=== PATIENT | male | born 1940 | race Caucasian/White ===

== ENCOUNTER → 2016-11-21 | Outpatient (CLI) | payer BC, OTHER ==
[~2016-11-21] MED LIST: ACET-1138 PO; ALPHTAB9 PO; ASPEC81 PO; CALC-20 PO; CHOL2000 PO; CLB200 PO; COEN1CAP17 PO; CYAN10004 PO; GLIP-172 PO; GLUC250C PO; LORA10TA51 PO; LTR510 PO; LYSI500C4 PO; MOME100A INH; MULTTAB PO; SIMV20TA2 PO; TAMS0.4C59 PO; TIOTCAP INH; ULT50X PO
[2016-11-21 13:46] LABS: ESTIMATED AVERAGE GLUCOSE 148 mg/dl; HA1C FLAG Normal (Normal)
[2016-11-21 14:52] LABS: ALT/SGPT 21 U/L (12-78); CHOLESTEROL 136 mg/dl (0-200); CHOLESTEROL/HDL RATIO 3.8; HDL CHOLESTEROL 36 mg/dl; TRIGLYCERIDES 123 mg/dl (0-150); VERY LOW DENSITY LIPOPROT CALC 25 mg/dl
--- NOTE | 2016-11-26 07:36 | CODING QUERY MEDICAL NECESSITY ---
SUPPORTING DIAGNOSIS NEEDED A supporting diagnosis is required for the test/procedure performed on this patient in order for us to be reimbursed by the patient's insurance. Please provide a supporting diagnosis for the following test/procedure listed below next to the test name along with your signature. *If there is no additional diagnosis for this patient that would support the following test/procedure please document that below next to the test/procedure. Test(s)/Procedure(s) that require a supporting diagnosis: * GLYCATED HEMOGLOBIN DIAGNOSIS: * DOS: 11/21/16 Provider Signature: Date: Thank you Jessica Hughes Health Information Management Once completed, please kindly fax back to [phone] For questions please call [phone]
== END | disposition home or self-care (01) ==
LOC: C.LABMFLN 09:00
PROVIDERS: ATTEND Family Medicine
DX: I12.9 Hypertensive chronic kidney disease with stage 1 through stage 4 chronic kidney disease, or unspecified chronic kidney disease (principal); E78.00 Pure hypercholesterolemia, unspecified; N18.9 Chronic kidney disease, unspecified; E11.22 Type 2 diabetes mellitus with diabetic chronic kidney disease

== ENCOUNTER → 2017-04-21 | Outpatient (CLI) | payer OTHER, BC ==
[2017-04-21 14:45] LABS: ALT/SGPT 23 U/L (12-78); BLOOD UREA NITROGEN 42 mg/dl (7-18); BUN/CREATININE RATIO 24.6 (10-20); CALCIUM 8.9 mg/dl (8.5-10.1); CARBON DIOXIDE 30 mmol/L (21-32); CHLORIDE 106 mmol/L (98-107); GLUCOSE 115 mg/dl (70-99); POTASSIUM 5.5 mmol/L (3.5-5.1); SODIUM 140 mmol/L (136-145)
[2017-04-21 14:46] LABS: ESTIMATED AVERAGE GLUCOSE 163 mg/dl; HA1C FLAG Normal (Normal)
== END | disposition home or self-care (01) ==
LOC: C.LABMFLN 09:20
PROVIDERS: ATTEND Family Medicine
DX: Z00.00 Encounter for general adult medical examination without abnormal findings (principal); I10 Essential (primary) hypertension; E11.9 Type 2 diabetes mellitus without complications; E78.00 Pure hypercholesterolemia, unspecified

== ENCOUNTER → 2017-05-07 | Outpatient (CLI) | payer OTHER, BC ==
[2017-05-07 13:40] LABS: BLOOD UREA NITROGEN 47 mg/dl (7-18); BUN/CREATININE RATIO 29.4 (10-20); CALCIUM 8.6 mg/dl (8.5-10.1); CARBON DIOXIDE 31 mmol/L (21-32); CHLORIDE 104 mmol/L (98-107); GLUCOSE 128 mg/dl (70-99); POTASSIUM 5.1 mmol/L (3.5-5.1); SODIUM 138 mmol/L (136-145)
== END ==
LOC: C.LABMFLN 09:03
PROVIDERS: ATTEND Family Medicine
DX: E87.5 Hyperkalemia (principal)

== ENCOUNTER → 2017-11-24 | Outpatient (CLI) | payer OTHER, BC ==
[2017-11-24 12:58] LABS: HEMOGLOBIN A1C 6.9 % (4.5-5.6)
[2017-11-24 15:57] LABS: ALT/SGPT 24 U/L (12-78); BLOOD UREA NITROGEN 45 mg/dl (7-18); CARBON DIOXIDE 29 mmol/L (21-32); CHOLESTEROL 134 mg/dl (0-200); CREATININE 1.59 mg/dl (0.60-1.40); GLUCOSE 131 mg/dl (70-99); POTASSIUM 4.6 mmol/L (3.5-5.1); SODIUM 139 mmol/L (136-145)
[2017-11-24 16:01] LABS: LDL CHOLESTEROL (DIRECT) 85 mg/dl
== END | disposition home or self-care (01) ==
LOC: C.LABMFLN 08:46
PROVIDERS: ATTEND Family Medicine
DX: Z00.00 Encounter for general adult medical examination without abnormal findings (principal); I10 Essential (primary) hypertension; E78.00 Pure hypercholesterolemia, unspecified; I70.209 Unspecified atherosclerosis of native arteries of extremities, unspecified extremity; E11.9 Type 2 diabetes mellitus without complications

== ENCOUNTER 2024-07-01 14:18 | Inpatient (IN) ==
[2024-07-01 15:20] LABS: Basophils # (auto) 0.06 K/uL (0.00-0.20); Basophils % (auto) 0.7 %; Eosinophils # (auto) 0.23 K/uL (0.00-0.50); Eosinophils % (auto) 2.6 %; Hematocrit (blood only) 33.4 % (42.0-52.0); Hemoglobin 10.6 g/dl (14.0-18.0); Immature Granulocytes # (auto) 0.02 K/uL (0.01-0.20); Immature Granulocytes % (auto) 0.2 %; Lymphocytes # (auto) 0.95 K/uL (1.20-3.40); Lymphocytes % (auto) 10.8 %; Mean Corpuscular Hemoglobin 35.6 pg (25.0-34.0); Mean Corpuscular Hgb Conc 31.7 g/dL (32.0-36.0); Mean Corpuscular Volume 112.1 fL (80.0-100.0); Mean Platelet Volume 9.8 fL (9.4-12.4); Monocytes # (auto) 0.68 K/uL (0.11-0.59); Monocytes % (auto) 7.7 %; Neutrophils # (auto) 6.87 K/uL (1.40-6.50); Platelet Count 112 K/uL (130-400); RDW Coefficient of Variation 13.8 % (11.5-14.5); RDW Standard Deviation 55.8 fL (36.4-46.3); Red Blood Count 2.98 M/uL (4.70-6.10); White Blood Count 8.81 K/ul (4.8-10.8)
[2024-07-01 15:35] LABS: Alanine Aminotransferase 14 U/L (7-52); Albumin Globulin Ratio 1.1 (0.9-2); Albumin Level 3.7 gm/dl (3.4-5.0); Alkaline Phosphatase 46 U/L (34-104); Anion Gap 11 (3-11); Aspartate Aminotransferase 14 U/L (13-39); BUN Creatinine Ratio 17.8 (10-20); Bilirubin,Total 0.5 mg/dl (0.2-1.0); Blood Urea Nitrogen 72 mg/dl (6-23); Calcium 8.4 mg/dl (8.6-10.3); Carbon Dioxide 29 mmol/L (21-32); Chloride 99 mmol/L (98-107); Globulin 3.5 gm/dl (2.5-4.0); Glucose 204 mg/dl (70-99(Fasting)); Potassium 4.3 mmol/L (3.5-5.1); Sodium 139 mmol/L (136-145); Total Protein 7.2 gm/dl (6.0-8.3)
[2024-07-01 15:41] LABS: Macrocytosis Present; Ovalocytes 1+
--- NOTE | 2024-07-01 15:45 | Emergency Department Note ---
Impression & Plan Fall, Closed pelvic fracture, Elevated troponin, Acute electrocardiogram changes, Dialysis patient ED Provider Note NAME: MACHO Gamboa WHITE AGE: 84 SEX: M : 1940 ARRIVES VIA: Walk-In INFORMANT: [Patient][family] ED PROVIDER(S): [Ryan Toscano MD] CHIEF COMPLAINT: Fall HISTORY OF PRESENT ILLNESS: The patient is an 84-year-old male who states that 2 days ago, he fell, he is not sure why this happened but he states that it has happened before. He did not lose consciousness or strike his head. He complains of some right lower lateral rib pain and some right hip pain. The right hip pain seems to be worsening though with time and he is here because he is concerned for fracture. Patient does attend dialysis Friday and Friday, next dialysis is tomorrow. There has been no headache or neck pain, no back pain, no abdominal pain. Patient does have a history of COPD, he wears O2 chronically. PMHx/PSHx/Social Hx: See Below PHYSICAL EXAM: GENERAL: Patient is in no acute distress. Thin and frail. HEENT: No acute trauma, normocephalic atraumatic, mucous membranes dry, no nasal congestion. NECK: No stridor, no adenopathy, no meningismus, trachea is midline. Nontender cervical spine. LUNGS: Markedly diminished breath sounds bilaterally, some scattered wheezes heard. HEART: Without murmurs gallops or rubs, regular rate and rhythm. Heart tones distant. ABDOMEN: Soft, nontender, no peritonitis. EXTREMITIES: No cyanosis. No gross deformity to the right lower extremity. NEUROLOGIC: Oriented x 3, no acute motor or sensory deficits, no focal weakness. SKIN: No jaundice, no diaphoresis. Chest: The patient does not have any particular discomfort with palpation of the right ribs, there is an older contusion across the entire chest wall, mostly on the left. As per the family, this is secondary to an issue with dialysis. The chest wall contusion has nothing to do with his recent fall. DIFFERENTIAL DIAGNOSIS: Rib fracture, pneumothorax, hip fracture, pelvic fracture, hematoma, electrolyte imbalance, anemia, dysrhythmia, among others. EMERGENCY DEPARTMENT PROCEDURES: MEDICAL DECISION MAKING: There is no leukocytosis. The patient is anemic however, this is a chronic finding. Platelet count was somewhat low at 112. INR mildly high at 1.2. There was a high creatinine consistent with his dialysis need. No electrolyte abnormality in need of emergent correction. No concerning liver enzyme elevation. ECG shows a sinus rhythm. There are inverted T waves across the anterior leads, these are new compared to previous ECGs. Cardiac enzyme testing x 1 does show a slight troponin elevation. This elevation could be secondary to cardiac injury or just mismatch from his renal disease. Right rib series does not show rib fracture or pneumonia. Right hip and pelvic films do show fractures to the superior and inferior pubic ramus on the right. Pelvis CT shows a fracture to the same rami as well as extension into the acetabulum. On exam, the patient was quite frail but not toxic. He was not febrile. The patient received IV fentanyl for pain. He was given some oral Tylenol. The patient had a sudden fall, the reason for the fall is unclear. He has some ECG changes and a bumped troponin. He has suffered a right pelvic fracture from the fall. I do think hospitalization is indicated. He will likely require dialysis tomorrow, this can be accomplished in the hospital. I spoke with orthopedics on-call, I spoke with case management and the patient's family. The on-call hospitalist was consulted. Prior/Outside records/notes reviewed: None ECG per my interpretation: Indication was fall. The ECG shows a normal sinus rhythm with a rate of 63. There is a right bundle branch block. There are some inverted T waves in the anterior leads. There is no acute ST elevation, no PVCs. The QTc is 499. Compared to an ECG from 03 June 2023, the T wave inversions appear new. Continuous Cardiac Monitoring per my interpretation: An order was placed for continuous cardiac monitoring. The monitor shows a rate of 65 with normal sinus rhythm. Imaging/x-ray results per my interpretation: Right rib films do not show any obvious fracture. No pneumonia. Right hip/pelvic films do show what appears to be a fracture to the superior and inferior pubic ramus. There may be a subtle fracture to the right acetabulum. Chronic Medical/Social conditions affecting care: Advanced age. Care/Management discussed with: Orthopedics-Dr. Tomlinson. Case management and the on-call hospitalist. Level of care consideration(s): After review of the information above and other included data: --I believe the patient requires escalation of care to admission DISPOSITION: Admission Past Med/Surg History Problem List (Updated 07/01/24 @ 21:39 by Ryan Toscano MD) Dialysis patient (Acute) Acute electrocardiogram changes (Acute) Elevated troponin (Acute) Closed pelvic fracture (Acute) Fall (Acute) Central venous catheter in place Dialysis AV fistula malfunction Encounter for pre-operative examination ESRD (end stage renal disease) Acute kidney injury Xerosis cutis PMR (polymyalgia rheumatica) Claudication in peripheral vascular disease Irreducible right inguinal hernia Anemia due to chronic kidney disease Per chart review, baseline hgb 10-13 range Fall Quadriceps weakness Weight loss Mediastinal mass Arthritis Right upper lobe pulmonary nodule Pulmonary emphysema Hypercholesterolemia Hemochromatosis Per records Patient's unsure, states "no blood draws done anymore" Diabetic neuropathy Chronic kidney disease, stage 4 (severe) Right inguinal hernia Temperature intolerance Atrophy of right kidney Vitamin D deficiency Normal left ventricular systolic function and wall motion Sinus bradycardia seen on director of cardiac rehabilitation Nonsustained paroxysmal ventricular tachycardia Systolic hypertension Near syncope Medicare annual wellness visit, subsequent Hyperkalemia Malignant melanoma Right posterior auricular area s/p removal/Mohs 08/2021 Eczema CKD stage 4 due to type 1 diabetes mellitus Sinus bradycardia Squamous cell carcinoma skin of arm COPD (chronic obstructive pulmonary disease) Vasomotor rhinitis (Acute) Vitamin B12 deficiency (Acute) CKD (chronic kidney disease) stage 3, GFR 30-59 ml/min (Chronic) Hypercholesterolemia (Chronic) Diabetes mellitus Benign essential hypertension Degenerative joint disease (DJD) of hip Medical History Limb alert care status LUE History of intestinal obstruction Arthritis Hemodialysis patient , [facility] in [place] Using port for dialysis (followed by Dr. Luis) BPH (benign prostatic hyperplasia) Inguinal hernia present Diabetes mellitus, type 2 On home oxygen therapy 2L PRN (hx non-compliance, uses few times/week with activity- indicates he does not use as often as indicated but voices that he will be compliant/monitor oxygen levels closely prior to upcoming surgery) Hypercholesterolemia Glaucoma Emphysema lung Surgical History H/O bilateral hip replacements S/P arteriovenous (AV) fistula creation left wrist. non-functioning. H/O vascular surgery dialysis cath (temporary) Rt chest History of tooth extraction H/O non-cataract eye surgery laser, R/L (for glaucoma) H/O foot surgery R/L History of total hip replacement Left (04/2016), Right (08/2016) History of cataract surgery R/L History of liver biopsy History of umbilical hernia repair H/O endovascular stent graft for abdominal aortic aneurysm [address] Bo H/O vasectomy 1970 Family History Father Diabetes Hypertension Mother Pancreatic cancer Diabetes Cancer Stroke Sister Diabetes Myocardial infarction Hypertension Family/Other Diabetes Coronary heart disease Other Heart disease No family history of adverse response to anesthesia Denies family history of Ovarian cancer Prostate cancer Breast cancer Colorectal cancer Social History Smoking Status: Current every day smoker Tobacco Type: Cigarettes Age Started Using Tobacco: 12; Age Quit Using Tobacco: 68; packs per day: 2; Second Hand Exposure: No; Do You Dip or Chew Tobacco: No; Hx Alcohol Use: No Hx Substance Use: No Preferred Language: Romanian Communication Ability: Effective Communication Ability Comment: KLAMATH Visual Impairment: Partially Limited Hearing Ability: Hard of Hearing Waste Duster Required: No Beliefs That Will Affect Care: None marital status: Current Living Situation: Spouse current occupational status: retired How many Children do You have: 1 Feels Safe at Home: Yes Childhood Exposure to Second-Hand Smoke: Yes (father) Diet: diabetic caffeine: Yes (coffee - 1-2 cups/then decaf in afternoon) during the past year weight has: decreased > 10 lbs Dental Care, Regularly: No Physical Activity Frequency: Daily Physical Activity Frequency Comment: house/yard work Seatbelt Use: always Sunscreen Use: Yes Do you think of yourself as: straight/heterosexual Assistive Devices: Cane Allergies Allergies Allergy/AdvReac Type Severity Reaction Status Date / Time morphine Allergy Severe Hypoxemia Verified 04/13/24 14:49 bupropion AdvReac Intermediate Depression Verified 04/13/24 14:49 oxycodone AdvReac Intermediate Depression; Verified 04/13/24 14:49 altered mental status Home Meds Home Medications Medication Instructions Recorded Confirmed coenzyme Q10 200 mg tablet 200 mg PO QAM 02/23/19 07/01/24 dorzolamide 2 % eye drops 1 drp OPB HS 12/14/21 07/01/24 cartilage 40 mg-collagen II 10 1 tab PO QAM 07/24/23 07/01/24 mg-boron 5 mg-hyaluronate 3.3 mg tablet ([employer]) multivitamin 1 tab PO QAM 07/24/23 07/01/24 calcium 600 mg-D3 20 mcg-magnesium 1 tab PO DAILY 04/13/24 07/01/24 50 gg-Gr-cntpyi-cody-boron tablet (Calcium 600-D3 Plus (mag-zinc)) calcium acetate(phosphat bind) 667 1,334 mg PO TIDM 07/01/24 07/01/24 mg capsule vitamin B complex-vitamin C-folic 1 tab PO QPM 07/01/24 07/01/24 acid 0.8 mg tablet (Lilo-Luis) Previous Rx's Medication Instructions Recorded fluticasone 250 mcg-salmeterol 50 1 inh inhalation BID #60 ea 04/13/24 mcg/dose blistr powdr for inhalation (Wixela Inhub) levalbuterol tartrate 45 2 inh inhalation Q6H #15 grams 04/13/24 mcg/actuation aerosol inhaler simvastatin 20 mg tablet 20 mg PO QAM #90 tabs 04/13/24 amlodipine 10 mg tablet (Norvasc) 10 mg PO QAM #90 tabs 05/10/24 Results & Data (ED) Vital Signs Vital Signs - 24 hr 07/01/24 14:19 07/01/24 15:30 07/01/24 15:35 Temperature 36.6 C Temperature Source Temporal Artery Scan Pulse Rate 65 Pulse Rate [Apical] 58 L Pulse Rhythm [Apical] Respiratory Rate 18 20 Respiratory Effort / Characteristics Non-Labored Spontaneous Respiratory Depth Normal Respiratory Pattern Blood Pressure 138/58 L Blood Pressure [Right Arm] 129/55 L Blood Pressure Mean 84 Blood Pressure Mean [Right Arm] 79 Pulse Oximetry 95 94 90 Oxygen Delivery Method Nasal Cannula Nasal Cannula Oxygen Flow Rate 2 6 Sepsis Recent Fever Within 48 Hours No Sepsis New/Unexplained Change in Mental Status N/A Sepsis Action Taken by Nursing No Action Required 07/01/24 17:00 07/01/24 18:45 07/01/24 19:37 Temperature Temperature Source Pulse Rate Pulse Rate [Apical] 64 63 60 Pulse Rhythm [Apical] Regular Respiratory Rate 22 19 18 Respiratory Effort / Characteristics Non-Labored Spontaneous Non-Labored Spontaneous Respiratory Depth Normal Normal Respiratory Pattern Blood Pressure Blood Pressure [Right Arm] 125/55 L 123/59 L 146/85 H Blood Pressure Mean Blood Pressure Mean [Right Arm] 78 80 105 Pulse Oximetry 78 L 92 97 Oxygen Delivery Method Room Air Room Air Nasal Cannula Oxygen Flow Rate 3 Sepsis Recent Fever Within 48 Hours Sepsis New/Unexplained Change in Mental Status Sepsis Action Taken by Nursing 07/01/24 20:20 07/01/24 21:19 Temperature Temperature Source Pulse Rate 61 Pulse Rate [Apical] 68 Pulse Rhythm [Apical] Respiratory Rate 16 Respiratory Effort / Characteristics Non-Labored Spontaneous Respiratory Depth Normal Respiratory Pattern Regular Blood Pressure Blood Pressure [Right Arm] 121/40 L Blood Pressure Mean Blood Pressure Mean [Right Arm] 67 Pulse Oximetry 93 Oxygen Delivery Method Oxymask Oxygen Flow Rate 8 Sepsis Recent Fever Within 48 Hours Sepsis New/Unexplained Change in Mental Status Sepsis Action Taken by Alf Medications Current Medication List: was personally reviewed by me Laboratory Data Attestation: I reviewed the patient's lab results. 07/01/24 15:05 07/01/24 15:05 Lab Results 07/01/24 Range/Units 15:05 WBC 8.81 (4.8-10.8) K/ul RBC 2.98 L (4.70-6.10) M/uL Hgb 10.6 L (14.0-18.0) g/dl Hct 33.4 L (42.0-52.0) % MCV 112.1 H (80.0-100.0) fL MCH 35.6 H (25.0-34.0) pg MCHC 31.7 L (32.0-36.0) g/dL RDW Std Deviation 55.8 H (36.4-46.3) fL RDW Coeff of Fidel 13.8 (11.5-14.5) % Plt Count 112 L (130-400) K/uL MPV 9.8 (9.4-12.4) fL Immature Gran % (Auto) 0.2 % Neut % (Auto) 78.0 % Lymph % (Auto) 10.8 % [place] % (Auto) 7.7 % Eos % (Auto) 2.6 % Baso % (Auto) 0.7 % Neut # (Auto) 6.87 H (1.40-6.50) K/uL Lymph # (Auto) 0.95 L (1.20-3.40) K/uL [place] # (Auto) 0.68 H (0.11-0.59) K/uL Eos # (Auto) 0.23 (0.00-0.50) K/uL Baso # (Auto) 0.06 (0.00-0.20) K/uL Immature Gran # (Auto) 0.02 (0.01-0.20) K/uL Macrocytosis Present Ovalocytes 1+ PT 12.6 H (9.0-12.0) Seconds INR 1.2 H (0.9-1.1) APTT 29 (21-31) Seconds PTT Ratio 1.1 Sodium 139 (136-145) mmol/L Potassium 4.3 (3.5-5.1) mmol/L Chloride 99 (98-107) mmol/L Carbon Dioxide 29 (21-32) mmol/L Anion Gap 11 (3-11) BUN 72 H (6-23) mg/dl Creatinine 4.04 H (0.6-1.4) mg/dl Est Cr Clr Drug Dosing Not Reportable eGFR 13.89 BUN/Creatinine Ratio 17.8 (10-20) Glucose 204 H (70-99(Fasting)) mg/dl Calcium 8.4 L (8.6-10.3) mg/dl Magnesium 2.3 (1.7-2.4) mg/dl Total Bilirubin 0.5 (0.2-1.0) mg/dl AST 14 (13-39) U/L ALT 14 (7-52) U/L Alkaline Phosphatase 46 (34-104) U/L Troponin I High Sens 54.3 H* (0-20) pg/ml Total Protein 7.2 (6.0-8.3) gm/dl Albumin 3.7 (3.4-5.0) gm/dl Globulin 3.5 (2.5-4.0) gm/dl Albumin/Globulin Ratio 1.1 (0.9-2) Administered Medications Fentanyl Citrate (Fentanyl Citrate Pf 100 Mcg/2 Ml Vial) 50 mcg IV Q15M PRN PRN Reason: Pain Stop: 07/15/24 15:33 Last Admin: 07/01/24 17:12 Dose: 50 mcg Documented By: RUBÉN Discontinued Medications Acetaminophen (Acetaminophen 325 Mg Tab) 650 mg PO NOW STA Stop: 07/01/24 15:35 Last Admin: 07/01/24 15:46 Dose: 650 mg Documented By: RUBÉN Fentanyl Citrate (Fentanyl Citrate Pf 100 Mcg/2 Ml Vial) 50 mcg IV NOW STA Stop: 07/01/24 15:35 Last Admin: 07/01/24 15:46 Dose: 50 mcg Documented By: RUBÉN Imaging Data Radiologist's Impression: Hip/Pelvis X-Ray 07/01/24 15:33 XR hip RT 2V w pelvis CLINICAL HISTORY: fall TECHNIQUE: 2 views of the right hip and single frontal view of the pelvis were obtained. Comparison: Comparison is made to hip radiograph 05/15/2016 FINDINGS: Irregularity is seen in the right superior and inferior pubic rami. Bilateral hip arthroplasty seen. Vascular stent is seen. Degenerative changes are noted. No soft tissue abnormality is seen. IMPRESSION: Irregularity of the superior and inferior pubic rami may represent positioning or true fracture, correlation with point tenderness is recommended. ACT 112: Negative or not required by law. Electronically signed by: Melquiades Conrad M.D. 07/01/2024 4:39 PM Ribs w/Chest X-Ray 07/01/24 15:33 XR ribs RT min 2V w CXR1V HISTORY: 84 years-old Male fall acute chest trauma status post fall COMPARISON: 06/03/2023 TECHNIQUE: AP view of the chest FINDINGS: Cardiac silhouette is enlarged. There is unchanged interstitial coarsening. No pneumothorax, pleural effusion or lobar airspace consolidation. Pulmonary emphysema. Pancreatic parenchymal calcifications again noted. Degenerative changes of the shoulders and spine. Abdominal aortic endograft. No acute displaced rib fracture identified. IMPRESSION: 1. No acute displaced rib fracture or pneumothorax identified. 2. Emphysema with chronic interstitial coarsening. 3. Evidence of chronic pancreatitis. ACT 112: Negative or not required by law. The above report was generated using voice recognition software. It may contain grammatical, syntax or spelling errors. Electronically signed by: Michael Hernandez M.D. 07/01/2024 4:[address] 07/01/24 17:05 CT pelvis wo con CLINICAL HISTORY: poss fx on right TECHNIQUE: Helical axial images of the pelvis were obtained and displayed at 5 and 1 mm intervals. Automated dose lowering techniques and/or adjustment according to patient size were utilized for this exam. This exam was performed without intravenous contrast. CT DOSE: 458.18 mGy.cm COMPARISON: None available at the time of this dictation. FINDINGS: Bladder: Unremarkable. Reproductive organs: Unremarkable. Bowel: Diverticulosis is seen without evidence of diverticulitis. Lymph nodes Pelvic: Unremarkable. Mesenteric: Unremarkable. Peritoneum: Normal Vessels: Aorta biiliac stent is partially visualized. Abdominal wall: A large right inguinal hernia instead a nondilated loop of bowel. Bones: Bilateral hip arthroplasties are seen. There are acute fractures of the superior and inferior pubic rami, the inferior pubic ramus fracture is mildly comminuted. There is also a fracture of the right acetabulum likely extending to the acetabular component of the prosthesis. IMPRESSION: Fractures of the superior and inferior right pubic rami are seen. There is also a nondisplaced acetabular fracture which likely extends to the acetabular component of the right hip arthroplasty. ACT 112: Negative or not required by law. Electronically signed by: Melquiades Conrad M.D. 07/01/2024 6:07 PM Discharge Plan Visit Data Chief Complaint: Fall Stated Complaint: FELL ON RT SIDE/HIP ED Provider: Ryan Toscano Discharge Problem: Fall, Closed pelvic fracture, Elevated troponin, Acute electrocardiogram changes, Dialysis patient Patient Disposition: Admitted As Inpatient Condition: Fair Forms Stand Alone Forms: My [facility] Prescriptions Prescriptions: No Action amlodipine [Norvasc] 10 mg tablet 10 mg PO QAM Qty: 90 3RF coenzyme Q10 200 mg tablet 200 mg PO QAM dorzolamide 2 % drops 1 drp OPB HS Patient Comments: takes hs Ca-D3-mag cn-sebi-otb-edgardo-bor [Calcium 600-D3 Plus (mag-zinc)] 600 mg calcium- 20 mcg-50 mg tablet 1 tab PO DAILY fluticasone propion-salmeterol [Wixela Inhub] 250-50 mcg/dose blister with device 1 inh inhalation BID Qty: 60 5RF levalbuterol tartrate 45 mcg/actuation HFA aerosol inhaler 2 inh inhalation Q6H Qty: 15 5RF simvastatin 20 mg tablet 20 mg PO QAM Qty: 90 1RF multivitamin tablet 1 tab PO QAM [facility] 40-10-5-3.3 mg tablet 1 tab PO QAM calcium acetate(phosphat bind) 667 mg capsule 1,334 mg PO TIDM Lilo-Luis 0.8 mg tablet 1 tab PO QPM Referrals Referrals: Tano Chester MD [Primary Care Provider] - Discharge Problem: Fall Qualifiers: Encounter type: initial encounter Qualified Code(s): W19.XXXA - Unspecified fall, initial encounter Closed pelvic fracture Qualifiers: Encounter type: initial encounter Pelvic bone location: unspecified part of pelvis Fracture alignment: displaced Qualified Code(s): S32.9XXA - Fracture of unspecified parts of lumbosacral spine and pelvis, initial encounter for closed fracture
[2024-07-01] MEDS: ACETAMINOPHEN 325 MG TAB PO STA (15:46)
[2024-07-01] MEDS: fentaNYL citrate PF 100 MCG/2 ML VIAL IV STA (15:46)
[2024-07-01 15:52] LABS: INR 1.2 (0.9-1.1); Partial Thromboplastin Ratio 1.1; Partial Thromboplastin Time 29 Seconds (21-31); Prothrombin Time 12.6 Seconds (9.0-12.0)
[2024-07-01 16:03] LABS: Magnesium 2.3 mg/dl (1.7-2.4)
--- NOTE | 2024-07-01 16:20 | Electrocardiogram Report ---
Test Reason : Blood Pressure : */* mmHG Vent. Rate : 63 BPM Atrial Rate : 63 BPM P-R Int : 156 ms QRS Dur : 144 ms QT Int : 488 ms P-R-T Axes : 89 29 -24 degrees QTcB Int : 499 ms Normal sinus rhythm Right bundle branch block Old Septal infarct T wave abnormality, consider inferolateral ischemia Abnormal ECG When compared with ECG of 03-Jun-2023 11:11, Right bundle branch block is now Present T-wave inversion in Anterolateral leads now present Confirmed by Ladarius Meza ([id number]) on 07/01/2024 4:19:46 PM Referred By: Confirmed By: Ladarius Meza
[2024-07-01 16:22] LABS: Troponin I High Sensitivity 54.3 pg/ml (0-20)
--- NOTE | 2024-07-01 16:40 | XRay Report ---
XR hip RT 2V w pelvis CLINICAL HISTORY: fall TECHNIQUE: 2 views of the right hip and single frontal view of the pelvis were obtained. Comparison: Comparison is made to hip radiograph 05/15/2016 FINDINGS: Irregularity is seen in the right superior and inferior pubic rami. Bilateral hip arthroplasty seen. Vascular stent is seen. Degenerative changes are noted. No soft tissue abnormality is seen. IMPRESSION: Irregularity of the superior and inferior pubic rami may represent positioning or true fracture, yue elation with point tenderness is recommended. ACT 112: Negative or not required by law. Electronically signed by: Melquiades Conrad M.D. 07/01/2024 4:39 PM
--- NOTE | 2024-07-01 16:46 | XRay Report ---
XR ribs RT min 2V w CXR1V HISTORY: 84 years-old Male fall acute chest trauma status post fall COMPARISON: 06/03/2023 TECHNIQUE: AP view of the chest FINDINGS: Cardiac silhouette is enlarged. There is unchanged interstitial coarsening. No pneumothorax, pleural effusion or lobar airspace consolidation. Pulmonary emphysema. Pancreatic parenchymal calcifications again noted. Degenerative changes of the shoulders and spine. Abdominal aortic endograft. No acute di splaced rib fracture identified. IMPRESSION: 1. No acute displaced rib fracture or pneumothorax identified. 2. Emphysema with chronic interstitial coarsening. 3. Evidence of chronic pancreatitis. ACT 112: Negative or not required by law. The above report was generated using voice recognition software. It may contain grammatical, syntax o r spelling errors. Electronically signed by: Michael Hernandez M.D. 07/01/2024 4:45 PM
[2024-07-01] MEDS: fentaNYL citrate PF 100 MCG/2 ML VIAL IV PRN (17:12)
--- NOTE | 2024-07-01 18:09 | CT Scan Report ---
CT pelvis wo con CLINICAL HISTORY: poss fx on right TECHNIQUE: Helical axial images of the pelvis were obtained and displayed at 5 and 1 mm intervals. Au tomated dose lowering techniques and/or adjustment according to patient size were utilized for this e xam. This exam was performed without intravenous contrast. CT DOSE: 458.18 mGy.cm COMPARISON: None available at the time of this dictation. FINDINGS: Bladder: Unremarkable. Reproductive organs: Unremarkable. Bowel: Diverticulosis is seen without evidence of diverticulitis. Lymph nodes Pelvic: Unremarkable. Mesenteric: Unremarkable. Peritoneum: Normal Vessels: Aorta biiliac stent is partially visualized. Abdominal wall: A large right inguinal hernia instead a nondilated loop of bowel. Bones: Bilateral hip arthroplasties are seen. There are acute fractures of the superior and inferior pubic rami, the inferior pubic ramus fracture is mildly comminuted. There is also a fracture of the r ight acetabulum likely extending to the acetabular component of the prosthesis. IMPRESSION: Fractures of the superior and inferior right pubic rami are seen. There is also a nondisplaced acetab ular fracture which likely extends to the acetabular component of the right hip arthroplasty. ACT 112: Negative or not required by law. Electronically signed by: Melquiades Conrad M.D. 07/01/2024 6:07 PM
--- NOTE | 2024-07-01 20:56 | History & Physical Report ---
Date of Service July 01, 2024 Assessment & Plan (1) Closed pelvic fracture: (2) Fall: (3) Elevated troponin: (4) ESRD (end stage renal disease) on dialysis: (5) PMR (polymyalgia rheumatica): (6) Hypercholesterolemia: (7) Diabetes mellitus: (8) Benign essential hypertension: (9) COPD (chronic obstructive pulmonary disease): (10) Hemochromatosis: Plan Closed pelvic fracture/right superior and inferior pubic ramus fractures/nondisplaced acetabular fracture- Status post ground-level mechanical fall No surgical indication Consult orthopedic surgery, having been seen by Dr. Blackwell for previous hip surgeries Elevated troponin/hypertension/history of bradycardia and NSVT- Elevated troponin likely associated with ESRD The patient will be admitted to telemetry for serial cardiac enzymes, serial EKG's, cardiac rhythm monitoring Continue amlodipine ESRD on HD- Dialysis days are Friday, Friday and Friday Continue all his usual supportive medications Consult nephrology COPD- Continue usual inhalers History of Present Illness Chief Complaint: The patient presents to the emergency department after bumping into his and falling, with complaint of right-sided lower rib cage pain, and right pelvic and hip pain. Primary Care Provider: Tano Chester MD The patient is an 84-year-old male increasing frequency of falls at home, who walks with either a walker or a wheelchair. Toward his bathroom, and bumped into his and fell, developing right lower rib cage pain and right pelvic and hip pain. Medical history includes ESRD on HD, PMR, a reducible right inguinal hernia, weight loss, mediastinal mass, hypercholesterolemia, hemochromatosis, nonsustained V. tach, sinus bradycardia malignant melanoma, diabetes mellitus and hypertension. Workup in the emergency department included x-ray of pelvis which showed right superior and inferior pubic rami fractures. CT of pelvis confirmed those fractures, and also a nondisplaced acetabular fracture. Allergies Allergy/AdvReac Type Severity Reaction Status Date / Time morphine Allergy Severe Hypoxemia Verified 04/13/24 14:49 bupropion AdvReac Intermediate Depression Verified 04/13/24 14:49 oxycodone AdvReac Intermediate Depression; Verified 04/13/24 14:49 altered mental status Home Medications Medication Instructions Recorded Confirmed Type coenzyme Q10 200 mg tablet 200 mg PO QAM 02/23/19 07/01/24 History dorzolamide 2 % eye drops 1 drp OPB HS 12/14/21 07/01/24 History cartilage 40 mg-collagen II 10 1 tab PO QAM 07/24/23 07/01/24 History mg-boron 5 mg-hyaluronate 3.3 mg tablet (Acorio) multivitamin 1 tab PO QAM 07/24/23 07/01/24 History calcium 600 mg-D3 20 mcg-magnesium 1 tab PO DAILY 04/13/24 07/01/24 History 50 th-Hx-zkmghs-cody-boron tablet (Calcium 600-D3 Plus (mag-zinc)) fluticasone 250 mcg-salmeterol 50 1 inh inhalation BID #60 ea 04/13/24 07/01/24 Rx mcg/dose blistr powdr for inhalation (Wixela Inhub) levalbuterol tartrate 45 2 inh inhalation Q6H #15 grams 04/13/24 07/01/24 Rx mcg/actuation aerosol inhaler simvastatin 20 mg tablet 20 mg PO QAM #90 tabs 04/13/24 07/01/24 Rx amlodipine 10 mg tablet (Norvasc) 10 mg PO QAM #90 tabs 05/10/24 07/01/24 Rx calcium acetate(phosphat bind) 667 1,334 mg PO TIDM 07/01/24 07/01/24 History mg capsule vitamin B complex-vitamin C-folic 1 tab PO QPM 07/01/24 07/01/24 History acid 0.8 mg tablet (Lilo-Luis) Past Med/Surg History Problem List (Updated 07/02/24 @ 02:20 by Oziel Alexandra MD) ESRD (end stage renal disease) on dialysis Dialysis patient (Acute) Acute electrocardiogram changes (Acute) Elevated troponin (Acute) Closed pelvic fracture (Acute) Fall (Acute) Central venous catheter in place Dialysis AV fistula malfunction Encounter for pre-operative examination ESRD (end stage renal disease) Acute kidney injury Xerosis cutis PMR (polymyalgia rheumatica) Claudication in peripheral vascular disease Irreducible right inguinal hernia Anemia due to chronic kidney disease Per chart review, baseline hgb 10-13 range Fall Quadriceps weakness Weight loss Mediastinal mass Arthritis Right upper lobe pulmonary nodule Pulmonary emphysema Hypercholesterolemia Hemochromatosis Per records Patient's unsure, states "no blood draws done anymore" Diabetic neuropathy Chronic kidney disease, stage 4 (severe) Right inguinal hernia Temperature intolerance Atrophy of right kidney Vitamin D deficiency Normal left ventricular systolic function and wall motion Sinus bradycardia seen on surveillance system monitor Nonsustained paroxysmal ventricular tachycardia Systolic hypertension Near syncope Medicare annual wellness visit, subsequent Hyperkalemia Malignant melanoma Right posterior auricular area s/p removal/Mohs 08/2021 Eczema CKD stage 4 due to type 1 diabetes mellitus Sinus bradycardia Squamous cell carcinoma skin of arm COPD (chronic obstructive pulmonary disease) Vasomotor rhinitis (Acute) Vitamin B12 deficiency (Acute) CKD (chronic kidney disease) stage 3, GFR 30-59 ml/min (Chronic) Hypercholesterolemia (Chronic) Diabetes mellitus Benign essential hypertension Degenerative joint disease (DJD) of hip Medical History Limb alert care status LUE History of intestinal obstruction Arthritis Hemodialysis patient MF, [facility] in [place] Using port for dialysis (followed by Dr. Luis) BPH (benign prostatic hyperplasia) Inguinal hernia present Diabetes mellitus, type 2 On home oxygen therapy 2L PRN (hx non-compliance, uses few times/week with activity- indicates he does not use as often as indicated but voices that he will be compliant/monitor oxygen levels closely prior to upcoming surgery) Hypercholesterolemia Glaucoma Emphysema lung Surgical History H/O bilateral hip replacements S/P arteriovenous (AV) fistula creation left wrist. non-functioning. H/O vascular surgery dialysis cath (temporary) Rt chest History of tooth extraction H/O non-cataract eye surgery laser, R/L (for glaucoma) H/O foot surgery R/L History of total hip replacement Left (04/2016), Right (08/2016) History of cataract surgery R/L History of liver biopsy History of umbilical hernia repair H/O endovascular stent graft for abdominal aortic aneurysm [address] Bo H/O vasectomy 1970 Family History Father Diabetes Hypertension Mother Pancreatic cancer Diabetes Cancer Stroke Sister Diabetes Myocardial infarction Hypertension Family/Other Diabetes Coronary heart disease Other Heart disease No family history of adverse response to anesthesia Denies family history of Ovarian cancer Prostate cancer Breast cancer Colorectal cancer Social History Smoking Status: Former smoker Tobacco Type: Cigarettes Age Started Using Tobacco: 12; Age Quit Using Tobacco: 68; packs per day: 2; Second Hand Exposure: No; Do You Dip or Chew Tobacco: No; Tobacco Cessation Education Requested by Patient: No Hx Alcohol Use: No Hx Substance Use: No Preferred Language: Czech Communication Ability: Effective Communication Ability Comment: YUHAAVIATAM Visual Impairment: Partially Limited Hearing Ability: Hard of Hearing 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 Beliefs That Will Affect Care: None marital status: Current Living Situation: Spouse current occupational status: retired How many Children do You have: 1 Other Information That Helps Us Care for You: No Feels Safe at Home: Yes Safety Concerns: Feels Safe At This Time Childhood Exposure to Second-Hand Smoke: Yes (father) Diet: diabetic caffeine: Yes (coffee - 1-2 cups/then decaf in afternoon) during the past year weight has: decreased > 10 lbs Dental Care, Regularly: No Physical Activity Frequency: Daily Physical Activity Frequency Comment: house/yard work Seatbelt Use: always Sunscreen Use: Yes Do you think of yourself as: straight/heterosexual Assistive Devices: Walker Review of Systems Review of Systems: The patient denies chest pain, palpitations, shortness of breath, dyspnea on exertion, cough, lower extremity swelling, sore throat, fevers, chills, sweats, nausea, vomiting, diarrhea , constipation, abdominal pain, blood in urine or stool, dysuria, urinary frequency or urgency, lightheadedness, dizziness, headache, loss of consciousness, focal or generalized weakness, numbness or tingling in arms, generalized arthralgias or myalgias, back or neck pain, or night sweats. The review of systems is otherwise negative other than for that already noted above, and at least 10 systems have been reviewed. Physical Exam Physical Exam: The patient is awake, alert and oriented 3, well developed and well nourished, normocephalic and atraumatic, lying in bed and in no acute distress. HEENT--PERRL, EOMI, mucous membranes and oropharynx normal Neck--supple. No JVD. No bruits. Thyroid normal, trachea midline, no adenopathy. Heart--normal S1 and S2. No murmurs, rubs or gallops. Lungs--clear bilaterally, no respiratory distress, no accessory muscle use. Abdomen--normal bowel sounds and soft. Nontender. Nondistended Extremities--no cyanosis or clubbing. No edema. Dermatologic--normal skin turgor, normal color, no abnormal lymph nodes, no rash. Neurologic--cranial nerves II through XII grossly intact. Rheumatologic--limited exam due to pain Psychiatric--normal affect. Results & Data Results & Data Vital Signs (Past 12 Hours) Vital Signs Temp Pulse Pulse Resp BP BP Pulse Ox 07/01/24 20:20 61 07/01/24 19:37 60 18 146/85 H 97 07/01/24 18:45 63 19 123/59 L 92 07/01/24 17:00 64 22 125/55 L 78 L 07/01/24 15:35 90 07/01/24 15:30 58 L 20 129/55 L 94 07/01/24 14:19 36.6 C 65 18 138/58 L 95 O2 Del Method O2 Flow Rate 07/01/24 20:20 07/01/24 19:37 Nasal Cannula 3 07/01/24 18:45 Room Air 07/01/24 17:00 Room Air 07/01/24 15:35 Nasal Cannula 6 07/01/24 15:30 Nasal Cannula 2 07/01/24 14:19 Laboratory Results Laboratory Results WBC 8.81 K/ul (4.8-10.8) 07/01/24 15:05 RBC 2.98 M/uL (4.70-6.10) L 07/01/24 15:05 Hgb 10.6 g/dl (14.0-18.0) L 07/01/24 15:05 Hct 33.4 % (42.0-52.0) L 07/01/24 15:05 MCV 112.1 fL (80.0-100.0) H 07/01/24 15:05 MCH 35.6 pg (25.0-34.0) H 07/01/24 15:05 MCHC 31.7 g/dL (32.0-36.0) L 07/01/24 15:05 RDW Std Deviation 55.8 fL (36.4-46.3) H 07/01/24 15:05 RDW Coeff of Fidel 13.8 % (11.5-14.5) 07/01/24 15:05 Plt Count 112 K/uL (130-400) L 07/01/24 15:05 MPV 9.8 fL (9.4-12.4) 07/01/24 15:05 Immature Gran % (Auto) 0.2 % 07/01/24 15:05 Neut % (Auto) 78.0 % 07/01/24 15:05 Lymph % (Auto) 10.8 % 07/01/24 15:05 [place] % (Auto) 7.7 % 07/01/24 15:05 Eos % (Auto) 2.6 % 07/01/24 15:05 Baso % (Auto) 0.7 % 07/01/24 15:05 Neut # (Auto) 6.87 K/uL (1.40-6.50) H 07/01/24 15:05 Lymph # (Auto) 0.95 K/uL (1.20-3.40) L 07/01/24 15:05 [place] # (Auto) 0.68 K/uL (0.11-0.59) H 07/01/24 15:05 Eos # (Auto) 0.23 K/uL (0.00-0.50) 07/01/24 15:05 Baso # (Auto) 0.06 K/uL (0.00-0.20) 07/01/24 15:05 Immature Gran # (Auto) 0.02 K/uL (0.01-0.20) 07/01/24 15:05 Macrocytosis Present 07/01/24 15:05 Ovalocytes 1+ 07/01/24 15:05 PT 12.6 Seconds (9.0-12.0) H 07/01/24 15:05 INR 1.2 (0.9-1.1) H 07/01/24 15:05 APTT 29 Seconds (21-31) 07/01/24 15:05 PTT Ratio 1.1 07/01/24 15:05 Sodium 139 mmol/L (136-145) 07/01/24 15:05 Potassium 4.3 mmol/L (3.5-5.1) 07/01/24 15:05 Chloride 99 mmol/L (98-107) 07/01/24 15:05 Carbon Dioxide 29 mmol/L (21-32) 07/01/24 15:05 Anion Gap 11 (3-11) 07/01/24 15:05 BUN 72 mg/dl (6-23) H 07/01/24 15:05 Creatinine 4.04 mg/dl (0.6-1.4) H 07/01/24 15:05 Est Cr Clr Drug Dosing Not Reportable 07/01/24 15:05 eGFR 13.89 07/01/24 15:05 BUN/Creatinine Ratio 17.8 (10-20) 07/01/24 15:05 Glucose 204 mg/dl (70-99(Fasting)) H 07/01/24 15:05 Calcium 8.4 mg/dl (8.6-10.3) L 07/01/24 15:05 Magnesium 2.3 mg/dl (1.7-2.4) 07/01/24 15:05 Total Bilirubin 0.5 mg/dl (0.2-1.0) 07/01/24 15:05 AST 14 U/L (13-39) 07/01/24 15:05 ALT 14 U/L (7-52) 07/01/24 15:05 Alkaline Phosphatase 46 U/L (34-104) 07/01/24 15:05 Troponin I High Sens 46.8 pg/ml (0-20) H 07/02/24 00:33 Total Protein 7.2 gm/dl (6.0-8.3) 07/01/24 15:05 Albumin 3.7 gm/dl (3.4-5.0) 07/01/24 15:05 Globulin 3.5 gm/dl (2.5-4.0) 07/01/24 15:05 Albumin/Globulin Ratio 1.1 (0.9-2) 07/01/24 15:05 Nasal Screen MRSA (PCR) Negative (Negative) 07/02/24 00:25 Impressions Hip/Pelvis X-Ray 07/01/24 15:33 XR hip RT 2V w pelvis CLINICAL HISTORY: fall TECHNIQUE: 2 views of the right hip and single frontal view of the pelvis were obtained. Comparison: Comparison is made to hip radiograph 05/15/2016 FINDINGS: Irregularity is seen in the right superior and inferior pubic rami. Bilateral hip arthroplasty seen. Vascular stent is seen. Degenerative changes are noted. No soft tissue abnormality is seen. IMPRESSION: Irregularity of the superior and inferior pubic rami may represent positioning or true fracture, correlation with point tenderness is recommended. ACT 112: Negative or not required by law. Electronically signed by: Melquiades Conrad M.D. 07/01/2024 4:39 PM Ribs w/Chest X-Ray 07/01/24 15:33 XR ribs RT min 2V w CXR1V HISTORY: 84 years-old Male fall acute chest trauma status post fall COMPARISON: 06/03/2023 TECHNIQUE: AP view of the chest FINDINGS: Cardiac silhouette is enlarged. There is unchanged interstitial coarsening. No pneumothorax, pleural effusion or lobar airspace consolidation. Pulmonary emphysema. Pancreatic parenchymal calcifications again noted. Degenerative changes of the shoulders and spine. Abdominal aortic endograft. No acute displaced rib fracture identified. IMPRESSION: 1. No acute displaced rib fracture or pneumothorax identified. 2. Emphysema with chronic interstitial coarsening. 3. Evidence of chronic pancreatitis. ACT 112: Negative or not required by law. The above report was generated using voice recognition software. It may contain grammatical, syntax or spelling errors. Electronically signed by: Michael Hernandez M.D. 07/01/2024 4:[address] 07/01/24 17:05 CT pelvis wo con CLINICAL HISTORY: poss fx on right TECHNIQUE: Helical axial images of the pelvis were obtained and displayed at 5 and 1 mm intervals. Automated dose lowering techniques and/or adjustment according to patient size were utilized for this exam. This exam was performed without intravenous contrast. CT DOSE: 458.18 mGy.cm COMPARISON: None available at the time of this dictation. FINDINGS: Bladder: Unremarkable. Reproductive organs: Unremarkable. Bowel: Diverticulosis is seen without evidence of diverticulitis. Lymph nodes Pelvic: Unremarkable. Mesenteric: Unremarkable. Peritoneum: Normal Vessels: Aorta biiliac stent is partially visualized. Abdominal wall: A large right inguinal hernia instead a nondilated loop of bowel. Bones: Bilateral hip arthroplasties are seen. There are acute fractures of the superior and inferior pubic rami, the inferior pubic ramus fracture is mildly comminuted. There is also a fracture of the right acetabulum likely extending to the acetabular component of the prosthesis. IMPRESSION: Fractures of the superior and inferior right pubic rami are seen. There is also a nondisplaced acetabular fracture which likely extends to the acetabular component of the right hip arthroplasty. ACT 112: Negative or not required by law. Electronically signed by: Melquiades Conrad M.D. 07/01/2024 6:07 PM Code Status & VTE Plan Code Status DNR/DNI VTE Prophylaxis Plan VTE Prophylaxis will be ordered: Yes PG Care Time/CCT Total # of Minutes Spent Total Time Spent with Patient: Total time spent is greater than 50% in coordination of care (as documented) at patient's floor/unit and/or counseling patient: Coding Level of Care Code 55110 INT INP/OBS CARE 3/75MIN Diagnoses Closed pelvic fracture S32.9XXA Encounter type: initial encounter Fracture alignment: displaced Pelvic bone location: unspecified part of pelvis Fall W19.XXXA Elevated troponin R79.89 ESRD (end stage renal disease) on dialysis N18.6; Z99.2 PMR (polymyalgia rheumatica) M35.3 Hypercholesterolemia E78.00 Diabetes mellitus E11.9 Benign essential hypertension I10 COPD (chronic obstructive pulmonary disease) J44.9 Hemochromatosis E83.119 (1) Closed pelvic fracture Encounter type: initial encounter Fracture alignment: displaced Pelvic bone location: unspecified part of pelvis Qualified Code(s): S32.9XXA - Fracture of unspecified parts of lumbosacral spine and pelvis, initial encounter for closed fracture
[2024-07-01] MEDS ORDERED: ONDANSETRON INJ 2 MG/ML 2 ML VIAL IV PRN (23:18)
[2024-07-02] MEDS: DORZOLAMIDE HCL 2% OPH SOLN 10 ML BTL OPB SCH (00:18)
[2024-07-02] MEDS: NEPHROCAPS PO SCH (00:19)
[2024-07-02] MEDS: LEVALBUTEROL TARTRATE 15 GM HFA.AER.AD INH SCH (00:31)
[2024-07-02 05:18] LABS: Basophils # (auto) 0.04 K/uL (0.00-0.20); Basophils % (auto) 0.5 %; Eosinophils # (auto) 0.24 K/uL (0.00-0.50); Eosinophils % (auto) 3.1 %; Hematocrit (blood only) 33.3 % (42.0-52.0); Hemoglobin 10.5 g/dl (14.0-18.0); Immature Granulocytes # (auto) 0.03 K/uL (0.01-0.20); Immature Granulocytes % (auto) 0.4 %; Lymphocytes # (auto) 1.24 K/uL (1.20-3.40); Lymphocytes % (auto) 15.8 %; Mean Corpuscular Hemoglobin 35.7 pg (25.0-34.0); Mean Corpuscular Hgb Conc 31.5 g/dL (32.0-36.0); Mean Corpuscular Volume 113.3 fL (80.0-100.0); Mean Platelet Volume 11.5 fL (9.4-12.4); Monocytes # (auto) 0.59 K/uL (0.11-0.59); Monocytes % (auto) 7.5 %; Neutrophils % (auto) 72.7 %; Platelet Count 111 K/uL (130-400); RDW Coefficient of Variation 13.9 % (11.5-14.5); RDW Standard Deviation 56.4 fL (36.4-46.3); Red Blood Count 2.94 M/uL (4.70-6.10); White Blood Count 7.84 K/ul (4.8-10.8)
[2024-07-02 05:37] LABS: Albumin Level 3.5 gm/dl (3.4-5.0); Bilirubin,Total 0.5 mg/dl (0.2-1.0); Calcium 8.1 mg/dl (8.6-10.3); Magnesium 2.3 mg/dl (1.7-2.4); Potassium 4.3 mmol/L (3.5-5.1)
[2024-07-02 05:42] LABS: Troponin I High Sensitivity 45.5 pg/ml (0-20)
[2024-07-02 05:58] LABS: Macrocytosis Present; Polychromasia 1+
[2024-07-02 06:10] LABS: Albumin Globulin Ratio 1.1 (0.9-2); Creatinine Clr Calc Pharmacy 9.4 ml/min; Globulin 3.2 gm/dl (2.5-4.0); Total Protein 6.7 gm/dl (6.0-8.3)
[2024-07-02] MEDS: ALBUT/IPRATROP 3MG/0.5MG NEB 3 ML VIAL NEB STA (06:37)
[2024-07-02] MEDS ORDERED: ONDANSETRON INJ 2 MG/ML 2 ML VIAL IV PRN (07:23)
[2024-07-02] MEDS: HYDROmorphone INJ 1 MG/ML SYRINGE IV STA (07:44)
[2024-07-02] MEDS: CALCIUM ACETATE 667 MG CAP/TAB PO SCH (07:46)
[2024-07-02] MEDS: FLUTICASONE/VILANTEROL 100/25MCG 14 PUFFS/INHALER INH SCH (07:50)
[2024-07-02] MEDS: MULTIVITAMIN TAB PO SCH (07:50)
[2024-07-02] MEDS: SIMVASTATIN 20 MG TAB PO SCH (07:50)
[2024-07-02] MEDS ORDERED: LIDOCAINE 4% CREAM 15 GM TUBE EXT PRN (08:54)
[2024-07-02] MEDS ORDERED: COENZYME Q10 200 MG PO SCH (09:00)
--- NOTE | 2024-07-02 10:33 | Electrocardiogram Report ---
Test Reason : Blood Pressure : */* mmHG Vent. Rate : 67 BPM Atrial Rate : 67 BPM P-R Int : 158 ms QRS Dur : 122 ms QT Int : 434 ms P-R-T Axes : 78 11 84 degrees QTcB Int : 458 ms Normal sinus rhythm Right bundle branch block Old Septal infarct Diffuse Minor Nonspecific T wave abnormality Abnormal ECG When compared with ECG of 01-Jul-2024 14:57, T-wave inversion in Anterolateral leads no longer present Confirmed by Ladarius Meza ([id number]) on 07/02/2024 10:33:25 AM Referred By: REFERRED SELF Confirmed By: Ladarius Meza
--- NOTE | 2024-07-02 11:01 | Nephrology Consultation ---
Date of Consultation July 02, 2024 Assessment & Plan (1) ESRD (end stage renal disease) on dialysis: (2) Fall: (3) Dialysis AV fistula malfunction: (4) Anemia due to chronic kidney disease: (5) Weight loss: (6) Benign essential hypertension: (7) Diabetes mellitus: Plan End-stage kidney disease, has been on hemodialysis since January 2023, via left brachial axillary AV graft. Admitted with a mechanical fall at home and nondisplaced pelvic fracture. Due for dialysis today as regular Friday, history, Friday schedule, blood pressure, volume status, electrolyte acceptable. He still makes decent amount of urine. Weight in fact below his dry weight. AV graft has been having difficulty with cannulation even at the outpatient dialysis unit with frequent infiltration. -- Attempted to dialyze today but AV graft needle repeatedly infiltrated. Will hold off on dialysis today and try again tomorrow morning. Do not expect any issues with volume overload or critical electrolyte abnormality as all the electrolyte has been within normal range. -- Avoid IV fluid, low potassium diet, left arm nephrology precaution for AV graft in place. Thank you for allowing me to participate in your patient's care. It was a pleasure to see Mr. Benton. History of Present Illness Reason for Consultation: ESKD Attending Physician: Joaquin Campa MD History of Present Illness Mr. Macho Benton is an 84-year-old male with PMH of end-stage kidney disease, has been on hemodialysis, hypertension, diabetes admitted to the hospital after a mechanical fall with recent history of recurrent fall at home increasing frequency of falls at home. Nephrology consult was requested for management of hemodialysis while inpatient. EMR records were reviewed in detail during patient's visit. Den presented to the hospital yesterday after he had a mechanical fall at home while he was trying to go to the bathroom with a walker or wheelchair and bumped with his . In ER chest x-ray and rib x-ray was negative for fracture. CT pelvis superior and inferior right pubic rami fracture and nondisplaced acetabul ar fracture. He reports pain manageable. He has been otherwise feeling well. Blood pressure reasonable. Electrolyte and volume status acceptable. 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 He still urinates normally and generally has not been gaining much in between dialysis. History of hypertension, blood pressure generally well-controlled. 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 No history of coronary artery disease or CVA but has significant PVD including Endovascular repair of AAA. History of BPH with frequent nocturia but no history of urinary retention. Sister had history of end-stage renal disease secondary to diabetic nephropathy. Long history of smoking for more than 55 years starting age 12, quit smoking at age 68. [employer]ired [employer] . He denies any symptoms, no significant shortness of breath or chest pain.Hemoglobin stable. Blood pressure slightly elevated. Allergies Allergy/AdvReac Type Severity Reaction Status Date / Time morphine Allergy Severe Hypoxemia Verified 04/13/24 14:49 bupropion AdvReac Intermediate Depression Verified 04/13/24 14:49 oxycodone AdvReac Intermediate Depression; Verified 04/13/24 14:49 altered mental status Home Medications Medication Instructions Recorded Confirmed Type coenzyme Q10 200 mg tablet 200 mg PO QAM 02/23/19 07/01/24 History dorzolamide 2 % eye drops 1 drp OPB HS 12/14/21 07/01/24 History cartilage 40 mg-collagen II 10 1 tab PO QAM 07/24/23 07/01/24 History mg-boron 5 mg-hyaluronate 3.3 mg tablet ([employer]) multivitamin 1 tab PO QAM 07/24/23 07/01/24 History calcium 600 mg-D3 20 mcg-magnesium 1 tab PO DAILY 04/13/24 07/01/24 History 50 zn-Ha-sjreyg-cody-boron tablet (Calcium 600-D3 Plus (mag-zinc)) fluticasone 250 mcg-salmeterol 50 1 inh inhalation BID #60 ea 04/13/24 07/01/24 Rx mcg/dose blistr powdr for inhalation ([employer]) levalbuterol tartrate 45 2 inh inhalation Q6H #15 grams 04/13/24 07/01/24 Rx mcg/actuation aerosol inhaler simvastatin 20 mg tablet 20 mg PO QAM #90 tabs 04/13/24 07/01/24 Rx amlodipine 10 mg tablet (Norvasc) 10 mg PO QAM #90 tabs 05/10/24 07/01/24 Rx calcium acetate(phosphat bind) 667 1,334 mg PO TIDM 07/01/24 07/01/24 History mg capsule vitamin B complex-vitamin C-folic 1 tab PO QPM 07/01/24 07/01/24 History acid 0.8 mg tablet ([employer]ilo[employer]Luis) Patient History Medical History Limb alert care status LUE History of intestinal obstruction Arthritis Hemodialysis patient MF, [facility] in [place] Using port for dialysis (followed by Dr. Luis) BPH (benign prostatic hyperplasia) Inguinal hernia present Diabetes mellitus, type 2 On home oxygen therapy 2L PRN (hx non-compliance, uses few times/week with activity- indicates he does not use as often as indicated but voices that he will be compli ant/monitor oxygen levels closely prior to upcoming surgery) Hypercholesterolemia Glaucoma Emphysema lung Surgical History H/O bilateral hip replacements S/P arteriovenous (AV) fistula creation left wrist. non-functioning. H/O vascular surgery dialysis cath (temporary) Rt chest History of tooth extraction H/O non-cataract eye surgery laser, R/L (for glaucoma) H/O foot surgery R/L History of total hip replacement Left (04/2016), Right (08/2016) History of cataract surgery R/L History of liver biopsy History of umbilical hernia repair H/O endovascular stent graft for abdominal aortic aneurysm [address] Bo H/O vasectomy 1970 Family History Father Diabetes Hypertension Mother Pancreatic cancer Diabetes Cancer Stroke Sister Diabetes Myocardial infarction Hypertension Family/Other Diabetes Coronary heart disease Other Heart disease No family history of adverse response to anesthesia Denies family history of Ovarian cancer Prostate cancer Breast cancer Colorectal cancer Social History Smoking Status: Former smoker Tobacco Type: Cigarettes Age Started Using Tobacco: 12; Age Quit Using Tobacco: 68; packs per day: 2; Second Hand Exposure: No; Do You Dip or Chew Tobacco: No; Tobacco Cessation Education Requested by Patient: No Hx Alcohol Use: No Hx Substance Use: No Preferred Language: Vietnamese Communication Ability: Effective Communication Ability Comment: [place] Visual Impairment: Partially Limited Hearing Ability: Hard of Hearing Husker Operator Required: No Beliefs That Will Affect Care: None marital status: Current Living Situation: Spouse current occupational status: retired How many Children do You have: 1 Other Information That Helps Us Care for You: No Feels Safe at Home: Yes Safety Concerns: Feels Safe At This Time Childhood Exposure to Second-Hand Smoke: Yes (father) Diet: diabetic caffeine: Yes (coffee - 1-2 cups/then decaf in afternoon) during the past year weight has: decreased > 10 lbs Dental Care, Regularly: No Physical Activity Frequency: Daily Physical Activity Frequency Comment: house/yard work Seatbelt Use: always Sunscreen Use: Yes Do you think of yourself as: straight/heterosexual Assistive Devices: Walker Review of Systems Review of Systems: Detailed review of system was done and pertinent positives and negatives are mentioned above. Physical Exam Constitutional: WD/WN, vitals as above + frail appearing and + underweight; no acute distress Eyes: + anicteric sclerae Respiratory: no respiratory distress Auscultation: lungs clear to auscultation bilaterally Cardiovascular: Rate/Rhythm: regular rate and regular rhythm Heart Sounds: normal S1 and normal S2 Extremities: no edema Gastrointestinal (Abdomen): Inspection/Auscultation: abdomen normal to inspection Musculoskeletal: Extremities: extremities normal to inspection Skin: + turgor decreased, + skin atrophy and + ecchymosis bruises Neurologic: no focal motor deficits Psychiatric: Orientation: alert and oriented x 3 Affect: euthymic affect Results & Data Vital Signs (Past 12 Hours) Vital Signs Temp Pulse Pulse Resp BP Pulse Ox Pulse Ox 07/02/24 08:44 66 07/02/24 07:30 36.3 C L 63 19 141/67 H 97 07/02/24 06:39 58 L 18 89 L 07/02/24 02:15 36.3 C L 68 18 147/62 H 97 07/02/24 01:22 69 07/02/24 00:33 70 18 99 07/01/24 23:53 36.3 C L 69 24 154/63 H 94 07/01/24 23:28 07/01/24 23:18 95 O2 Del Method O2 Del Method O2 Flow Rate O2 Flow Rate 07/02/24 08:44 07/02/24 07:30 Nasal Cannula 7 07/02/24 06:39 Nasal Cannula 10 07/02/24 02:15 Nasal Cannula 10 07/02/24 01:22 07/02/24 00:33 Nasal Cannula 9 07/01/24 23:53 Nasal Cannula 10 07/01/24 23:28 Nasal Cannula 10 07/01/24 23:18 Nasal Cannula 10 PG Care Time/CCT Total # of Minutes Spent Total Time Spent with Patient: Total time spent is greater than 50% in coordination of care (as documented) at patient's floor/unit and/or counseling patient: Coding Level of Care Code 13550 INT INP/OBS CARE 3/75MIN Diagnoses ESRD (end stage renal disease) on dialysis N18.6; Z99.2 Fall W19.XXXA Encounter type: initial encounter Dialysis AV fistula malfunction T82.590A Anemia due to chronic kidney disease N18.9; D63.1 Weight loss R63.4 Benign essential hypertension I10 Diabetes mellitus E11.9 (2) Fall Encounter type: initial encounter Qualified Code(s): W19.XXXA - Unspecified fall, initial encounter
--- NOTE | 2024-07-02 11:03 | Hospitalist Progress Note ---
Date of Service July 02, 2024 Assessment & Plan (1) Closed pelvic fracture: Plan: CT scan revealed right superior and right inferior pubic rami fracture. He also has an acetabular fracture of the right hip, status post remote right total hip arthroplasty. Pain control measures. Orthopedic consultation is pending (2) Fall: Plan: Mechanical fall. No syncope. Pain control measures. OT and PT requested (3) Elevated troponin: Plan: Telemetry. No evidence of acute coronary syndrome. No chest pain (4) ESRD (end stage renal disease) on dialysis: Plan: Appreciate nephrology consultation and recommendations. Hemodialysis 3 times weekly. Daily lab (5) Diabetes mellitus: Plan: ADA diet. Sliding scale coverage as needed. Continue current medical management (6) Benign essential hypertension: Plan: Stable. Continue current medical management (7) COPD (chronic obstructive pulmonary disease): Plan: Stable. Continue current medical manage Plan It appears he will need SNF placement until the fractures heal. He will be hospitalized through the weekend and hopefully placement can occur early next week. Admission and Anticipated Discharge Date Admission Date: July 02, 2024 Subjective The patient was seen while in hemodialysis. No acute distress. He is relatively pain-free while lying immobile. CT scan on admission reveals right superior and right inferior pubic rami fractures. There is also a right hip acetabular fracture. He is status post remote right total hip arthroplasty. Orthopedic consultation is pending. Review of Systems 2 Review of Systems: Constitutionalno fever or chills ENTno blurred vision, no double vision, no epistaxis, no sore throat Respiratoryno cough, no wheezing, no shortness of breath Cardiacno palpitations, no chest pain, no syncope Joe nausea, vomiting, diarrhea, melena, hematochezia GUno urinary retention, no urinary incontinence, no dysuria, no hematuria Musculoskeletalpelvic pain with weightbearing, no muscle tenderness Skinno rashes, no pruritus Neurono isolated weakness, no paresthesia Psychno depression, no anxiety Physical Exam 2 Physical Exam: General-alert and oriented x3, no fever, no chills HEENT-head atraumatic and normocephalic, pupils equal and reactive to light, extraocular muscles intact Neck-no lymphadenopathy or thyromegaly, trachea midline Chest-clear to auscultation. No rales, wheezing or rhonchi Cardiac-regular rate and rhythm, normal S1 and S2 Abdomen-normal bowel sounds, no hepatosplenomegaly Extremities-no cyanosis, clubbing, or edema Neuro-cranial nerves II through XII intact, motor and sensory function within normal limits, strength symmetrical with generalized weakness, no focal deficits Psych-normal affect, normal mood Results & Data Results & Data Vital Signs (Past 12 Hours) Vital Signs Temp Pulse Pulse Resp BP Pulse Ox Pulse Ox 07/02/24 08:44 66 07/02/24 07:30 36.3 C L 63 19 141/67 H 97 07/02/24 06:39 58 L 18 89 L 07/02/24 02:15 36.3 C L 68 18 147/62 H 97 07/02/24 01:22 69 07/02/24 00:33 70 18 99 07/01/24 23:53 36.3 C L 69 24 154/63 H 94 07/01/24 23:28 07/01/24 23:18 95 O2 Del Method O2 Del Method O2 Flow Rate O2 Flow Rate 07/02/24 08:44 07/02/24 07:30 Nasal Cannula 7 07/02/24 06:39 Nasal Cannula 10 07/02/24 02:15 Nasal Cannula 10 07/02/24 01:22 07/02/24 00:33 Nasal Cannula 9 07/01/24 23:53 Nasal Cannula 10 07/01/24 23:28 Nasal Cannula 10 07/01/24 23:18 Nasal Cannula 10 Laboratory Results 07/02/24 04:47 07/02/24 04:47 PG Care Time/CCT Total # of Minutes Spent Total Time Spent with Patient: Total time spent is greater than 50% in coordination of care (as documented) at patient's floor/unit and/or counseling patient: Coding Level of Care Code 11134 SUB INP/OBS CARE 3/50MIN Diagnoses Closed pelvic fracture S32.9XXA Encounter type: initial encounter Fracture alignment: displaced Pelvic bone location: unspecified part of pelvis Fall W19.XXXA Elevated troponin R79.89 ESRD (end stage renal disease) on dialysis N18.6; Z99.2 Diabetes mellitus E11.9 Benign essential hypertension I10 COPD (chronic obstructive pulmonary disease) J44.9 (1) Closed pelvic fracture Encounter type: initial encounter Fracture alignment: displaced Pelvic bone location: unspecified part of pelvis Qualified Code(s): S32.9XXA - Fracture of unspecified parts of lumbosacral spine and pelvis, initial encounter for closed fracture
[2024-07-02] MEDS: amLODIPine BESYLATE 5 MG TAB PO SCH (12:32)
[2024-07-02] MEDS: ACETAMINOPHEN 325 MG TAB PO PRN (12:35)
[2024-07-02] MEDS: HYDROmorphone INJ 1 MG/ML SYRINGE IV PRN (17:28)
--- NOTE | 2024-07-02 19:28 | Orthopedic Consultation ---
Date of Consultation July 02, 2024 Assessment & Plan (1) Insufficiency fracture of pelvis: (2) ESRD (end stage renal disease) on dialysis: (3) Dialysis patient: (4) Acute electrocardiogram changes: (5) Elevated troponin: (6) Fall: (7) Central venous catheter in place: (8) ESRD (end stage renal disease): Plan This is a pleasant 84-year-old gentleman who was seen and evaluated in his hospital room with his daughter and his at bedside. The patient seems to have sustained a pelvis insufficiency fracture when he fell on Friday of this past week. This resulted in a superior pubic root, and medial wall acetabulum fracture. The reassuring thing here is that these fractures are relatively nondisplaced, and although may represent some amount of instability, I do believe that performing an extensive intrapelvic approach to contain the medial wall of his acetabulum carries with it significant risk in this medically frail patient that would likely hasten his demise. The patient's family was relieved to hear that we would not be pursuing any operative management here. I did explain to them that pelvis insufficiency fractures generally take about 6 weeks in order to heal and for that time, we would limit his weightbearing on the right lower extremity such that he is "touchdown weightbearing". He will need to continue to walk with a walker or he may be spending a significant amount of time in his wheelchair. Although the patient did not want to hear it, I do think that he would likely benefit from either in-home physical therapy or going to an acute rehabilitation facility, however I will leave that up to the therapists in order to develop an appropriate and safe discharge plan. Orthopedic recommendations: -Touchdown weightbearing right lower extremity -Ambulate only with assistive devices -No plan for operative intervention -PT/OT to develop safe discharge plan -Follow-up with Dr. Charles in 6 weeks. thank you for allowing me to participate in the care of this patient. History of Present Illness Reason for Consultation: right hemipelvis fracture Attending Physician: Joaquin Campa MD History of Present Illness The patient is an 84-year-old male who initially presented to the hospital after a fall that occurred on Friday of this past week. He and his note increasing frequency of falls at home. At baseline, the patient walks with a walker or uses a wheelchair. Medical history includes ESRD on HD, PMR, a reducible right inguinal hernia, weight loss, mediastinal mass, hypercholesterolemia, hemochromatosis, nonsustained V. tach, sinus bradycardia malignant melanoma, diabetes mellitus and hypertension. Workup in the emergency department included x-ray of pelvis which showed right superior and inferior pubic rami fractures. CT of pelvis confirmed those fractures, and also a nondisplaced acetabular fracture. Of note, the patient's family notes that he wishes to have his inguinal hernia addressed, however there was surgeons have taken into the operating room because the danger of the surgery for him. He has been admitted to the medicine service. Orthopedics has been consulted for management of his right hip. Imaging demonstrates superior and inferior pubic root fractures with a medial wall acetabular fracture. Allergies Allergy/AdvReac Type Severity Reaction Status Date / Time morphine Allergy Severe Hypoxemia Verified 04/13/24 14:49 bupropion AdvReac Intermediate Depression Verified 04/13/24 14:49 oxycodone AdvReac Intermediate Depression; Verified 04/13/24 14:49 altered mental status Home Medications Medication Instructions Recorded Confirmed Type coenzyme Q10 200 mg tablet 200 mg PO QAM 02/23/19 07/01/24 History dorzolamide 2 % eye drops 1 drp OPB HS 12/14/21 07/01/24 History cartilage 40 mg-collagen II 10 1 tab PO QAM 07/24/23 07/01/24 History mg-boron 5 mg-hyaluronate 3.3 mg tablet ([employer]) multivitamin 1 tab PO QAM 07/24/23 07/01/24 History calcium 600 mg-D3 20 mcg-magnesium 1 tab PO DAILY 04/13/24 07/01/24 History 50 cu-Ei-qgppmd-cody-boron tablet (Calcium 600-D3 Plus (mag-zinc)) fluticasone 250 mcg-salmeterol 50 1 inh inhalation BID #60 ea 04/13/24 07/01/24 Rx mcg/dose blistr powdr for inhalation ([employer]) levalbuterol tartrate 45 2 inh inhalation Q6H #15 grams 04/13/24 07/01/24 Rx mcg/actuation aerosol inhaler simvastatin 20 mg tablet 20 mg PO QAM #90 tabs 04/13/24 07/01/24 Rx amlodipine 10 mg tablet (Norvasc) 10 mg PO QAM #90 tabs 05/10/24 07/01/24 Rx calcium acetate(phosphat bind) 667 1,334 mg PO TIDM 07/01/24 07/01/24 History mg capsule vitamin B complex-vitamin C-folic 1 tab PO QPM 07/01/24 07/01/24 History acid 0.8 mg tablet ([employer]) Patient History Medical History Limb alert care status LUE History of intestinal obstruction Arthritis Hemodialysis patient MF, [facility] in [place] Using port for dialysis (followed by Dr. Luis) BPH (benign prostatic hyperplasia) Inguinal hernia present Diabetes mellitus, type 2 On home oxygen therapy 2L PRN (hx non-compliance, uses few times/week with activity- indicates he does not use as often as indicated but voices that he will be compliant/monitor oxygen levels closely prior to upcoming surgery) Hypercholesterolemia Glaucoma Emphysema lung Surgical History H/O bilateral hip replacements S/P arteriovenous (AV) fistula creation left wrist. non-functioning. H/O vascular surgery dialysis cath (temporary) Rt chest History of tooth extraction H/O non-cataract eye surgery laser, R/L (for glaucoma) H/O foot surgery R/L History of total hip replacement Left (04/2016), Right (08/2016) History of cataract surgery R/L History of liver biopsy History of umbilical hernia repair H/O endovascular stent graft for abdominal aortic aneurysm [address] Bo H/O vasectomy 1970 Family History Father Diabetes Hypertension Mother Pancreatic cancer Diabetes Cancer Stroke Sister Diabetes Myocardial infarction Hypertension Family/Other Diabetes Coronary heart disease Other Heart disease No family history of adverse response to anesthesia Denies family history of Ovarian cancer Prostate cancer Breast cancer Colorectal cancer Social History Smoking Status: Former smoker Tobacco Type: Cigarettes Age Started Using Tobacco: 12; Age Quit Using Tobacco: 68; packs per day: 2; Second Hand Exposure: No; Do You Dip or Chew Tobacco: No; Tobacco Cessation Education Requested by Patient: No Hx Alcohol Use: No Hx Substance Use: No Preferred Language: Macedonian Communication Ability: Effective Communication Ability Comment: [place] Visual Impairment: Partially Limited Hearing Ability: Hard of Hearing [place]ilting Head Band Sawyer Required: No Beliefs That Will Affect Care: None marital status: Current Living Situation: Spouse current occupational status: retired How many Children do You have: 1 Other Information That Helps Us Care for You: No Feels Safe at Home: Yes Safety Concerns: Feels Safe At This Time Childhood Exposure to Second-Hand Smoke: Yes (father) Diet: diabetic caffeine: Yes (coffee - 1-2 cups/then decaf in afternoon) during the past year weight has: decreased > 10 lbs Dental Care, Regularly: No Physical Activity Frequency: Daily Physical Activity Frequency Comment: house/yard work Seatbelt Use: always Sunscreen Use: Yes Do you think of yourself as: straight/heterosexual Assistive Devices: Cane Physical Exam Physical Exam: Physical evaluation, the patient is resting comfortably in bed. He demonstrates no pain with logroll or heel strike. I am able to range his right hip without significant discomfort. Per the patient's family he has not been able to walk due to pain in the hip. He demonstrates intact sensation throughout the right lower extremity Results & Data Vital Signs (Past 12 Hours) Vital Signs Temp Pulse Pulse Pulse Pulse Resp BP 07/02/24 14:43 59 L 07/02/24 13:02 57 L 15 07/02/24 11:56 07/02/24 11:37 36.4 C L 63 19 142/53 H 07/02/24 09:56 36.5 C 66 07/02/24 08:44 66 07/02/24 07:30 36.3 C L 63 19 141/67 H Pulse Ox O2 Del Method O2 Flow Rate 07/02/24 14:43 07/02/24 13:02 96 Nasal Cannula 5 07/02/24 11:56 High Flow Nasal Cannula 7 07/02/24 11:37 91 Nasal Cannula 7 07/02/24 09:56 07/02/24 08:44 07/02/24 07:30 97 Nasal Cannula 7 Diagnostic Findings X-rays and CT scan of the pelvis were personally interpreted and reviewed. These demonstrate an acute appearing superior pubic root fracture with medial acetabular wall fracture and old inferior pubic ramus fracture (6) Fall Encounter type: initial encounter Qualified Code(s): W19.XXXA - Unspecified fall, initial encounter
[2024-07-03 06:34] LABS: Basophils # (auto) 0.04 K/uL (0.00-0.20); Basophils % (auto) 0.5 %; Eosinophils # (auto) 0.25 K/uL (0.00-0.50); Eosinophils % (auto) 3.2 %; Hematocrit (blood only) 31.2 % (42.0-52.0); Hemoglobin 10.3 g/dl (14.0-18.0); Immature Granulocytes # (auto) 0.03 K/uL (0.01-0.20); Immature Granulocytes % (auto) 0.4 %; Lymphocytes # (auto) 0.86 K/uL (1.20-3.40); Mean Corpuscular Hemoglobin 36.5 pg (25.0-34.0); Mean Corpuscular Volume 110.6 fL (80.0-100.0); Mean Platelet Volume 10.6 fL (9.4-12.4); Monocytes % (auto) 7.7 %; Neutrophils # (auto) 6.04 K/uL (1.40-6.50); Neutrophils % (auto) 77.2 %; Platelet Count 115 K/uL (130-400); RDW Coefficient of Variation 13.1 % (11.5-14.5); RDW Standard Deviation 52.8 fL (36.4-46.3); Red Blood Count 2.82 M/uL (4.70-6.10); White Blood Count 7.82 K/ul (4.8-10.8)
[2024-07-03 07:04] LABS: Albumin Globulin Ratio 1.1 (0.9-2); Albumin Level 3.5 gm/dl (3.4-5.0); BUN Creatinine Ratio 15.5 (10-20); Bilirubin,Total 0.4 mg/dl (0.2-1.0); Calcium 8.2 mg/dl (8.6-10.3); Creatinine Clr Calc Pharmacy 7.1 ml/min; Globulin 3.2 gm/dl (2.5-4.0); Magnesium 2.5 mg/dl (1.7-2.4); Potassium 5.2 mmol/L (3.5-5.1); Total Protein 6.7 gm/dl (6.0-8.3)
[2024-07-03 07:06] LABS: Macrocytosis Present; Ovalocytes 1+; Polychromasia 1+
--- NOTE | 2024-07-03 09:13 | XRay Report ---
XR chest 1V portable CLINICAL HISTORY: hypoxia TECHNIQUE: Single frontal radiograph of the chest was obtained. Comparison: Comparison is made to rib series 03/31/2024 FINDINGS: No lines and tubes are seen. Cardiomegaly is noted. The aortic arch is calcified. Reticular interstit ial opacities are seen. Bilateral lower lung airspace opacities are seen. No evidence of pleural effu magen or pneumothorax. IMPRESSION: Bilateral lower lung predominant airspace opacities which may represent atelectasis, pneumonia, and/o r aspiration. ACT 112: Negative or not required by law. Electronically signed by: Melquiades Conrad M.D. 07/03/2024 9:11 AM
--- NOTE | 2024-07-03 10:35 | Critical Care Consultation ---
Date of Consultation July 03, 2024 Assessment & Plan (1) ESRD (end stage renal disease) on dialysis: Plan Impression: 84-year-old male status post fall with pelvic fractures nonoperative and dialysis. His fistula is not able to be accessed currently and he requires a temporary access for HD. Recommendations: 1. Patient was evaluated in the dialysis unit. Risks and benefits of temporary HD catheter were discussed with the patient to include bleeding, infection, damage to blood vessel, need for additional procedures, or pneumothorax. Advised him that there are no real alternatives. He agreed. Consent was verified. Will proceed with ultrasound-guided temporary HD catheter placement. 2. Management of the patient's other medical issues per his primary admitting service and nephrology. Thanks for the opportunity participating the care of this patient. Feel free to contact us with questions or concerns History of Present Illness Attending Physician: Joaquin Campa MD History of Present Illness Asked by nephrology to assess this patient for placement of a temporary hemodialysis catheter. History is obtained from discussion with nephrology as well as review of the patient's electronic medical record. Patient is a 40-year-old male with end-stage renal disease on dialysis. He has an AV fistula which has had some difficulty being accessed in the outpatient dialysis setting. He was admitted 07/01 with a fall. He was found to have nondisplaced acetabular fracture as well as pelvic fracture. Surgery was consulted. He is being managed with observation at this point in time and does not require surgery however he did require dialysis while in the hospital. The dialysis nurse attempted to access his fistula today but they were unable to obtain access and we were consulted to provide temporary HD catheter for the patient to undergo dialysis. The patient does report some shortness of breath. His oxygen requirement is increasing. Chest x-ray demonstrates pulmonary vascular congestion. He is not on any significant blood thinners and has not had any bleeding difficulties recently. Allergies Allergy/AdvReac Type Severity Reaction Status Date / Time morphine Allergy Severe Hypoxemia Verified 04/13/24 14:49 bupropion AdvReac Intermediate Depression Verified 04/13/24 14:49 oxycodone AdvReac Intermediate Depression; Verified 04/13/24 14:49 altered mental status Home Medications Medication Instructions Recorded Confirmed Type coenzyme Q10 200 mg tablet 200 mg PO QAM 02/23/19 07/01/24 History dorzolamide 2 % eye drops 1 drp OPB HS 12/14/21 07/01/24 History cartilage 40 mg-collagen II 10 1 tab PO QAM 07/24/23 07/01/24 History mg-boron 5 mg-hyaluronate 3.3 mg tablet (Otelic) multivitamin 1 tab PO QAM 07/24/23 07/01/24 History calcium 600 mg-D3 20 mcg-magnesium 1 tab PO DAILY 04/13/24 07/01/24 History 50 fz-Bd-ldqmra-cody-boron tablet (Calcium 600-D3 Plus (mag-zinc)) fluticasone 250 mcg-salmeterol 50 1 inh inhalation BID #60 ea 04/13/24 07/01/24 Rx mcg/dose blistr powdr for inhalation (Wixela Inhub) levalbuterol tartrate 45 2 inh inhalation Q6H #15 grams 04/13/24 07/01/24 Rx mcg/actuation aerosol inhaler simvastatin 20 mg tablet 20 mg PO QAM #90 tabs 04/13/24 07/01/24 Rx amlodipine 10 mg tablet (Norvasc) 10 mg PO QAM #90 tabs 05/10/24 07/01/24 Rx calcium acetate(phosphat bind) 667 1,334 mg PO TIDM 07/01/24 07/01/24 History mg capsule vitamin B complex-vitamin C-folic 1 tab PO QPM 07/01/24 07/01/24 History acid 0.8 mg tablet (Lilo-Luis) Patient History Medical History Limb alert care status LUE History of intestinal obstruction Arthritis Hemodialysis patient , [facility] [place] Using port for dialysis (followed by Dr. Luis) BPH (benign prostatic hyperplasia) Inguinal hernia present Diabetes mellitus, type 2 On home oxygen therapy 2L PRN (hx non-compliance, uses few times/week with activity- indicates he does not use as often as indicated but voices that he will be compliant/monitor oxygen levels closely prior to upcoming surgery) Hypercholesterolemia Glaucoma Emphysema lung Surgical History H/O bilateral hip replacements S/P arteriovenous (AV) fistula creation left wrist. non-functioning. H/O vascular surgery dialysis cath (temporary) Rt chest History of tooth extraction H/O non-cataract eye surgery laser, R/L (for glaucoma) H/O foot surgery R/L History of total hip replacement Left (04/2016), Right (08/2016) History of cataract surgery R/L History of liver biopsy History of umbilical hernia repair H/O endovascular stent graft for abdominal aortic aneurysm [address] Bo H/O vasectomy 1970 Family History Father Diabetes Hypertension Mother Pancreatic cancer Diabetes Cancer Stroke Sister Diabetes Myocardial infarction Hypertension Family/Other Diabetes Coronary heart disease Other Heart disease No family history of adverse response to anesthesia Denies family history of Ovarian cancer Prostate cancer Breast cancer Colorectal cancer Social History Smoking Status: Former smoker Tobacco Type: Cigarettes Age Started Using Tobacco: 12; Age Quit Using Tobacco: 68; packs per day: 2; Second Hand Exposure: No; Do You Dip or Chew Tobacco: No; Tobacco Cessation Education Requested by Patient: No Hx Alcohol Use: No Hx Substance Use: No Preferred Language: Maltese Communication Ability: Effective Communication Ability Comment: JACKSON Visual Impairment: Partially Limited Hearing Ability: Hard of Hearing Order Fulfillment Specialist Required: No Beliefs That Will Affect Care: None marital status: Current Living Situation: Spouse current occupational status: retired How many Children do You have: 1 Other Information That Helps Us Care for You: No Feels Safe at Home: Yes Safety Concerns: Feels Safe At This Time Childhood Exposure to Second-Hand Smoke: Yes (father) Diet: diabetic caffeine: Yes (coffee - 1-2 cups/then decaf in afternoon) during the past year weight has: decreased > 10 lbs Dental Care, Regularly: No Physical Activity Frequency: Daily Physical Activity Frequency Comment: house/yard work Seatbelt Use: always Sunscreen Use: Yes Do you think of yourself as: straight/heterosexual Assistive Devices: Cane Review of Systems Review of Systems: All systems reviewed & are unremarkable except as noted in Subjective Physical Exam Constitutional: WD/WN, vitals as above + frail appearing and + underweight; no acute distress Eyes: + anicteric sclerae Respiratory: no respiratory distress Auscultation: lungs clear to auscultation bilaterally Cardiovascular: Rate/Rhythm: regular rate and regular rhythm Heart Sounds: normal S1 and normal S2 Extremities: no edema Gastrointestinal (Abdomen): Inspection/Auscultation: abdomen normal to inspection Musculoskeletal: Extremities: extremities normal to inspection Skin: + turgor decreased, + skin atrophy and + ecchymosis bruises Neurologic: no focal motor deficits Psychiatric: Orientation: alert and oriented x 3 Affect: euthymic affect Results & Data Results & Data Vital Signs (Past 12 Hours) Vital Signs Temp Pulse Pulse Resp BP Pulse Ox O2 Del Method 07/03/24 07:57 High Flow Nasal Cannula 07/03/24 07:40 64 20 93 Nasal Cannula 07/03/24 07:27 58 L 07/03/24 07:22 36.4 C L 58 L 20 131/62 88 L Nasal Cannula 07/03/24 03:18 36.4 C L 60 18 133/61 87 L Nasal Cannula 07/03/24 01:20 57 L 18 92 Nasal Cannula 07/02/24 23:50 36.4 C L 56 L 19 132/56 L 91 Nasal Cannula 07/02/24 22:48 60 O2 Flow Rate 07/03/24 07:57 7 07/03/24 07:40 7 07/03/24 07:27 07/03/24 07:22 6 07/03/24 03:18 5 07/03/24 01:20 5 07/02/24 23:50 5 07/02/24 22:48 Critical Care Results & Data Vital Signs (Past 12 Hours) Vital Signs Temp Pulse Pulse Resp BP Pulse Ox O2 Del Method 07/03/24 07:57 High Flow Nasal Cannula 07/03/24 07:40 64 20 93 Nasal Cannula 07/03/24 07:27 58 L 07/03/24 07:22 36.4 C L 58 L 20 131/62 88 L Nasal Cannula 07/03/24 03:18 36.4 C L 60 18 133/61 87 L Nasal Cannula 07/03/24 01:20 57 L 18 92 Nasal Cannula 07/02/24 23:50 36.4 C L 56 L 19 132/56 L 91 Nasal Cannula 07/02/24 22:48 60 O2 Flow Rate 07/03/24 07:57 7 07/03/24 07:40 7 07/03/24 07:27 07/03/24 07:22 6 07/03/24 03:18 5 07/03/24 01:20 5 07/02/24 23:50 5 07/02/24 22:48 Lab & Micro Results (Past 24 Hours) RBC 2.82 M/uL (4.70-6.10) L 07/03/24 WBC 7.82 K/ul (4.8-10.8) 07/03/24 Hgb 10.3 g/dl (14.0-18.0) L 07/03/24 Hct 31.2 % (42.0-52.0) L 07/03/24 MCV 110.6 fL (80.0-100.0) H 07/03/24 MCH 36.5 pg (25.0-34.0) H 07/03/24 MCHC 33.0 g/dL (32.0-36.0) 07/03/24 RDW Standard Deviation 52.8 fL (36.4-46.3) H 07/03/24 RDW Coefficient of Variation 13.1 % (11.5-14.5) 07/03/24 Plt Count 115 K/uL (130-400) L 07/03/24 MPV 10.6 fL (9.4-12.4) 07/03/24 Neutrophils (%) (Auto) 77.2 % 07/03/24 Lymphocytes (%) (Auto) 11.0 % 07/03/24 Monocytes # (Auto) 0.60 K/uL (0.11-0.59) H 07/03/24 Eosinophils # (Auto) 0.25 K/uL (0.00-0.50) 07/03/24 Immature Granulocyte % (Auto) 0.4 % 07/03/24 Neutrophils # (Auto) 6.04 K/uL (1.40-6.50) 07/03/24 Lymphocytes # (Auto) 0.86 K/uL (1.20-3.40) L 07/03/24 Monocytes # (Auto) 0.60 K/uL (0.11-0.59) H 07/03/24 Eosinophils # (Auto) 0.25 K/uL (0.00-0.50) 07/03/24 Basophils # (Auto) 0.04 K/uL (0.00-0.20) 07/03/24 Immature Granulocyte # (Auto) 0.03 K/uL (0.01-0.20) 4 Polychromasia 1+ 07/03/24 Macrocytosis Present 07/03/24 Ovalocytes 1+ 07/03/24 Na 137 mmol/L (136-145) 07/03/24 K 5.2 mmol/L (3.5-5.1) H 07/03/24 Cl 96 mmol/L (98-107) L 07/03/24 CO2 28 mmol/L (21-32) 07/03/24 Anion Gap 13 (3-11) H 07/03/24 BUN 101 mg/dl (6-23) H 07/03/24 Creatinine 6.52 mg/dl (0.6-1.4) H* 07/03/24 BUN/Creatinine Ratio 15.5 (10-20) 07/03/24 Glu 160 mg/dl (70-99(Fasting)) H 07/03/24 Ca 8.2 mg/dl (8.6-10.3) L 07/03/24 Total Bilirubin 0.4 mg/dl (0.2-1.0) 07/03/24 AST 11 U/L (13-39) L 07/03/24 ALT 10 U/L (7-52) 07/03/24 Alkaline Phosphatase 42 U/L (34-104) 07/03/24 TP 6.7 gm/dl (6.0-8.3) 07/03/24 Albumin 3.5 gm/dl (3.4-5.0) 07/03/24 Globulin 3.2 gm/dl (2.5-4.0) 07/03/24 Albumin/Globulin Ratio 1.1 (0.9-2) 07/03/24 Mg 2.5 mg/dl (1.7-2.4) H 07/03/24 05:46 Calcium Level 8.2 mg/dl (8.6-10.3) L 07/03/24 05:46 Diagnostic Findings (Past 24 Hours) Chest X-Ray 07/03/24 08:56 XR chest 1V portable CLINICAL HISTORY: hypoxia TECHNIQUE: Single frontal radiograph of the chest was obtained. Comparison: Comparison is made to rib series 03/31/2024 FINDINGS: No lines and tubes are seen. Cardiomegaly is noted. The aortic arch is calcified. Reticular interstitial opacities are seen. Bilateral lower lung airspace opacities are seen. No evidence of pleural effusion or pneumothorax. IMPRESSION: Bilateral lower lung predominant airspace opacities which may represent atelectasis, pneumonia, and/or aspiration. ACT 112: Negative or not required by law. Electronically signed by: Melquiades Conrad M.D. 07/03/2024 9:11 AM I & O Totals 24 Hours 07/02/24 07/03/24 07/04/24 06:59 06:59 06:59 Intake Total 660 / 660 Output Total 125 / 125 Balance 535 / 535 Cumulative 07/01/24 14:18 thru 07/03/24 05:49 Intake Total 660 Output Total 125 Balance 535 RT Ventilator Mngmt (Last Documented) Ventilator Ordered Settings Respiratory Rate 20 07/03/24 07:40 Ventilator - PT Measurements Respiratory Rate 20 Coding Level of Care Code 13400 IN/OBS CONSULT LVL 3,45M Diagnoses ESRD (end stage renal disease) on dialysis N18.6; Z99.2
--- NOTE | 2024-07-03 10:35 | Nephrology Progress Note ---
Date of Service July 03, 2024 Assessment & Plan (1) ESRD (end stage renal disease) on dialysis: Plan: HD MWF as outpatient at [facility]. Missed treatment yesterday due to infiltration during needle placement. We were unable to access the AVG this AM. A RIJ HD catheter has been placed at the bedside. Orders for HD were entered into the EHR and reviewed with the senior specialist. HD catheter functioning well. (2) Dialysis AV fistula malfunction: Plan: I discussed the plan of care with Dr. Campa this AM. Temp cath used for HD today. Catheter will be left in place until we have a more reliable care home access. Hopefully we will be able to use the AVG on Friday. If we cannot access the AVF on Friday, permcath placement should be considered. (3) Insufficiency fracture of pelvis: Plan: Orthopedic consultation reviewed. Plan of care discussed with Dr. Campa. PT/OT pending. Admission and Anticipated Discharge Date Admission Date: July 02, 2024 Subjective No acute events overnight. Macho denies pain. He admits to some increased orthopnea. He otherwise feels well. He has not had a bowel movement though he denies feeling constipated. He did throw up this morning after he was taken to the dialysis room. I met with his and daughter this AM. Plan of care was reviewed. Unfortunately, we were not able to access his AVG for dialysis this AM. Several attempts were made but we were not able to obtain adequate blood return. I consulted with the attraction worker and Dr. Montana placed a temporary HD catheter at the bedside. Review of Systems Review of Systems: All systems reviewed & are unremarkable except as noted in HPI & below Constitutional: no fever and no chills Cardiovascular: + orthopnea Physical Exam Constitutional: + thin and + frail appearing; no acute d istress Eyes: + anicteric sclerae ENMT: Mouth: no oral mucosal abnormality and oral mucous membranes not dry Neck: normal visual inspection and trachea midline Respiratory: normal respiratory effort Auscultation: lungs clear to auscultation bilaterally Cardiovascular: Rate/Rhythm: + bradycardic Heart Sounds: normal S1 and normal S2 Vessels: + JVD Extremities: + edema Musculoskeletal: Extremities: no cyanosis and no clubbing Skin: + turgor decreased; no jaundice Neurologic: Motor/Sensory: no tremor and no asterixis Psychiatric: Orientation: alert and oriented x 3 Results & Data Vital Signs (Past 12 Hours) Vital Signs Temp Pulse Pulse Resp BP Pulse Ox O2 Del Method 07/03/24 07:57 High Flow Nasal Cannula 07/03/24 07:40 64 20 93 Nasal Cannula 07/03/24 07:27 58 L 07/03/24 07:22 36.4 C L 58 L 20 131/62 88 L Nasal Cannula 07/03/24 03:18 36.4 C L 60 18 133/61 87 L Nasal Cannula 07/03/24 01:20 57 L 18 92 Nasal Cannula 07/02/24 23:50 36.4 C L 56 L 19 132/56 L 91 Nasal Cannula 07/02/24 22:48 60 O2 Flow Rate 07/03/24 07:57 7 07/03/24 07:40 7 07/03/24 07:27 07/03/24 07:22 6 07/03/24 03:18 5 07/03/24 01:20 5 07/02/24 23:50 5 07/02/24 22:48 Laboratory Results Laboratory Results - last 24 hr 07/02/24 07/03/24 07/03/24 11:53 05:46 09:05 WBC 7.82 RBC 2.82 L Hgb 10.3 L Hct 31.2 L MCV 110.6 H MCH 36.5 H MCHC 33.0 RDW Std Deviation 52.8 H RDW Coeff of Fidel 13.1 Plt Count 115 L MPV 10.6 Immature Gran % (Auto) 0.4 Neut % (Auto) 77.2 Lymph % (Auto) 11.0 Parke % (Auto) 7.7 Eos % (Auto) 3.2 Baso % (Auto) 0.5 Neut # (Auto) 6.04 Lymph # (Auto) 0.86 L Parke # (Auto) 0.60 H Eos # (Auto) 0.25 Baso # (Auto) 0.04 Immature Gran # (Auto) 0.03 Polychromasia 1+ Macrocytosis Present Ovalocytes 1+ Sodium 137 Potassium 5.2 H D Chloride 96 L Carbon Dioxide 28 Anion Gap 13 H BUN 101 H Creatinine 6.52 H* D Est Cr Clr Drug Dosing 7.1 eGFR 7.82 BUN/Creatinine Ratio 15.5 Glucose 160 H Calcium 8.2 L Magnesium 2.5 H Total Bilirubin 0.4 AST 11 L ALT 10 Alkaline Phosphatase 42 Troponin I High Sens 49.1 H B-Natriuretic Peptide > 4700 H Total Protein 6.7 Albumin 3.5 Globulin 3.2 Albumin/Globulin Ratio 1.1 PG Care Time/CCT Total # of Minutes Spent Total Time Spent with Patient: Total time spent is greater than 50% in coordination of care (as documented) at patient's floor/unit and/or counseling patient: Coding Level of Care Code 84059 SUB INP/OBS CARE 3/50MIN Diagnoses ESRD (end stage renal disease) on dialysis N18.6; Z99.2 Dialysis AV fistula malfunction T82.590A Insufficiency fracture of pelvis M84.454A
--- NOTE | 2024-07-03 10:37 | Procedure Note ---
Procedure Note Date of Service July 03, 2024 CENTRAL LINE PROCEDURE NOTE: Procedure: Temporary hemodialysis catheter placement Provider: Rell Montana MD Indication: Central Drug Administration, Poor Venous Access, Multiple Lab Draws Necessary, etc. Anesthesia: 5 mL lidocaine 1% Site: Right IJ Consent was signed and placed on the chart prior to procedure. Indication, risks, and benefits were explained at length. A time-out was completed verifying correct patient, procedure, site, positioning, and implants(s) or special equipment if applicable. Patients right neck was cleansed and draped in the typical sterile fashion using Chloraprep. The Internal Jugular Vein and Carotid Artery were identified using ultrasound. The superficial tissue was anesthetized using 5 mL of 1% lidocaine without epinephrine under direct visualization with the ultrasound. After adequate anesthetization was achieved, the Internal Jugular vein was cannulated under direct ultrasound guidance using an introducer needle on a syringe. Good venous blood return was maintained prior to removal of syringe from introducer needle. Using Seldinger Technique, a guide wire was advanced through the introducer needle without resistance. The introducer needle was removed. A small incision was made in penetrating fashion at the guide wire insertion site utilizing an 11 blade scalpel. Serial dilators were advanced to the vessel without resistance. The final dilator was exchanged for a 16 cm dual port hemodialysis catheter which was advanced into the vessel without resistance. The guide wire was removed intact from the catheter without issue. Each port was easily flushed with sterile saline. The catheter was placed at the hub and sutured in place. BioPatch was applied to the catheter and a sterile Tegaderm dressing was applied over the catheter with careful attention to sterility. Patient tolerated procedure well. No immediate complications were met. Post procedure x-ray was completed, placement was appropriate and no pneumothorax was noted. [facility] Procedure Codes (Charges) Tubes, Drains, and Vasc Access Procedure 1: Tubes, Drains, and Vasc Access: [id number] Insertion of cannula for hemodialysis Procedure 2: Tubes, Drains, and Vasc Access: [id number] Ultrasound Guidance For Vascular Coding CPT Codes Tubes, Drains, and Vasc Access - Tubes, Drains, and Vasc Access: [id number] Insertion of cannula for hemodialysis ([id number]) Tubes, Drains, and Vasc Access - Tubes, Drains, and Vasc Access: [id number] Ultrasound Guidance For Vascular ([id number]) Additional Codes Date of Service (PG.SURGERY)
--- NOTE | 2024-07-03 10:58 | XRay Report ---
XR chest 1V portable CLINICAL HISTORY: RIJ HD catheter placement TECHNIQUE: Single frontal radiograph of the chest was obtained. Comparison: Comparison is made to chest radiograph 06/23/2024 FINDINGS: Right IJ catheter terminates in the mid SVC. Cardiomegaly is noted. The aortic arch is calcified. The re is prominence and cephalization of the vasculature with Barbara B lines seen. No evidence of pleura l effusion or pneumothorax. IMPRESSION: Cardiomegaly and mild pulmonary edema. Bilateral lower lung predominant airspace opacities are again seen. This may represent atelectasis, pneumonia, and/or aspiration. ACT 112: Negative or not required by law. Electronically signed by: Melquiades Conrad M.D. 07/03/2024 10:56 AM
--- NOTE | 2024-07-03 11:42 | Hospitalist Progress Note ---
Date of Service July 03, 2024 Assessment & Plan (1) Closed pelvic fracture: Plan: CT scan revealed right superior and right inferior pubic rami fracture. He also has an acetabular fracture of the right hip, status post remote right total hip arthroplasty. Pain control measures. Orthopedic consultation is pending (2) Acute respiratory failure with hypoxia: Plan: It appears that pulmonary atelectasis is the cause. Supplemental oxygen per nasal cannula to maintain saturation greater than 90%. Incentive spirometry has been ordered (3) Fall: Plan: Mechanical fall. No syncope. Pain control measures. OT and PT requested (4) Elevated troponin: Plan: Telemetry. No evidence of acute coronary syndrome. No chest pain (5) ESRD (end stage renal disease) on dialysis: Plan: Appreciate nephrology consultation and recommendations. Hemodialysis 3 times weekly. Daily lab. Unfortunately his arm AV fistula is not working well. He had a temporary HD catheter placed in the right IJ position today, July 03 (6) Diabetes mellitus: Plan: ADA diet. Sliding scale coverage as needed. Continue current medical management (7) Benign essential hypertension: Plan: Stable. Continue current medical management (8) COPD (chronic obstructive pulmonary disease): Plan: Stable. Continue current medical manage Plan It appears he will need SNF placement until the fractures heal. He will be hospitalized through the weekend and hopefully placement can occur early next week. Admission and Anticipated Discharge Date Admission Date: July 02, 2024 Subjective The patient was seen twice this morning. Once in the room where his was present and once in hemodialysis. The AV fistula has been finicky and he now has a temporary dialysis catheter in the right IJ position. Chest x-ray reveals evidence of atelectasis. Incentive spirometry ordered. Case discussed with nephrology. Review of Systems 2 Review of Systems: Constitutionalno fever or chills ENTno blurred vision, no double vision, no epistaxis, no sore throat Respiratoryno cough, no wheezing, no shortness of breath Cardiacno palpitations, no chest pain, no syncope Joe nausea, vomiting, diarrhea, melena, hematochezia GUno urinary retention, no urinary incontinence, no dysuria, no hematuria Musculoskeletalpelvic pain with weightbearing, no muscle tenderness Skinno rashes, no pruritus Neurono isolated weakness, no paresthesia Psychno depression, no anxiety Physical Exam 2 Physical Exam: General-alert and oriented x3, no fever, no chills HEENT-head atraumatic and normocephalic, pupils equal and reactive to light, extraocular muscles intact Neck-no lymphadenopathy or thyromegaly, trachea midline Chest-clear to auscultation. No rales, wheezing or rhonchi Cardiac-regular rate and rhythm, normal S1 and S2 Abdomen-normal bowel sounds, no hepatosplenomegaly Extremities-no cyanosis, clubbing, or edema Neuro-cranial nerves II through XII intact, motor and sensory function within normal limits, strength symmetrical with generalized weakness, no focal deficits Psych-normal affect, normal mood Results & Data Results & Data Vital Signs (Past 12 Hours) Vital Signs Temp Pulse Pulse Pulse Resp BP BP 07/03/24 11:00 61 128/46 L 07/03/24 10:36 61 128/53 L 07/03/24 10:23 36.7 C 58 L 07/03/24 07:57 07/03/24 07:40 64 20 07/03/24 07:27 58 L 07/03/24 07:22 36.4 C L 58 L 20 131/62 07/03/24 03:18 36.4 C L 60 18 133/61 07/03/24 01:20 57 L 18 07/02/24 23:50 36.4 C L 56 L 19 132/56 L Pulse Ox O2 Del Method O2 Flow Rate 07/03/24 11:00 07/03/24 10:36 07/03/24 10:23 07/03/24 07:57 High Flow Nasal Cannula 7 07/03/24 07:40 93 Nasal Cannula 7 07/03/24 07:27 07/03/24 07:22 88 L Nasal Cannula 6 07/03/24 03:18 87 L Nasal Cannula 5 07/03/24 01:20 92 Nasal Cannula 5 07/02/24 23:50 91 Nasal Cannula 5 Laboratory Results 07/03/24 05:46 07/03/24 05:46 PG Care Time/CCT Total # of Minutes Spent Total Time Spent with Patient: Total time spent is greater than 50% in coordination of care (as documented) at patient's floor/unit and/or counseling patient: Coding Level of Care Code 13334 SUB INP/OBS CARE 3/50MIN Diagnoses Closed pelvic fracture S32.9XXA Encounter type: initial encounter Fracture alignment: displaced Pelvic bone location: unspecified part of pelvis Acute respiratory failure with hypoxia J96.01 Fall W19.XXXA Elevated troponin R79.89 ESRD (end stage renal disease) on dialysis N18.6; Z99.2 Diabetes mellitus E11.9 Benign essential hypertension I10 COPD (chronic obstructive pulmonary disease) J44.9 (1) Closed pelvic fracture Encounter type: initial encounter Fracture alignment: displaced Pelvic bone location: unspecified part of pelvis Qualified Code(s): S32.9XXA - Fracture of unspecified parts of lumbosacral spine and pelvis, initial encounter for closed fracture
--- NOTE | 2024-07-03 14:43 | XRay Report ---
XR KUB/Abdomen 1 view CLINICAL HISTORY: R/o obstruction TECHNIQUE: 1 view of the abdomen was obtained. Comparison: Comparison is made to CT abdomen pelvis 04/09/2013 FINDINGS: Lung bases are unremarkable. Degenerative changes are seen in the visualized skeleton. Aortobiiliac s tent is seen. Bilateral hip arthroplasties are seen. The bowel gas pattern is nonobstructive. Large s tool burden is seen without evidence of inspissated stool in the rectum. IMPRESSION: Nonobstructive bowel gas pattern. Incidental note is made of large stool burden. ACT 112: Negative or not required by law. Electronically signed by: Melquiades Conrad M.D. 07/03/2024 2:42 PM
[2024-07-04 05:26] LABS: Basophils # (auto) 0.04 K/uL (0.00-0.20); Basophils % (auto) 0.6 %; Eosinophils % (auto) 1.5 %; Hematocrit (blood only) 31.8 % (42.0-52.0); Hemoglobin 10.1 g/dl (14.0-18.0); Immature Granulocytes # (auto) 0.02 K/uL (0.01-0.20); Immature Granulocytes % (auto) 0.3 %; Lymphocytes # (auto) 0.75 K/uL (1.20-3.40); Mean Corpuscular Hemoglobin 35.6 pg (25.0-34.0); Mean Corpuscular Hgb Conc 31.8 g/dL (32.0-36.0); Monocytes # (auto) 0.54 K/uL (0.11-0.59); Monocytes % (auto) 7.9 %; Neutrophils # (auto) 5.35 K/uL (1.40-6.50); Neutrophils % (auto) 78.7 %; Platelet Count 125 K/uL (130-400); RDW Coefficient of Variation 13.2 % (11.5-14.5); RDW Standard Deviation 54.7 fL (36.4-46.3); Red Blood Count 2.84 M/uL (4.70-6.10)
[2024-07-04 05:46] LABS: Macrocytosis Present
[2024-07-04 05:59] LABS: Albumin Globulin Ratio 1.1 (0.9-2); Albumin Level 3.5 gm/dl (3.4-5.0); BUN Creatinine Ratio 13.4 (10-20); Bilirubin,Total 0.5 mg/dl (0.2-1.0); Calcium 8.6 mg/dl (8.6-10.3); Creatinine Clr Calc Pharmacy 9.8 ml/min; Globulin 3.3 gm/dl (2.5-4.0); Magnesium 2.2 mg/dl (1.7-2.4); Potassium 4.2 mmol/L (3.5-5.1); Total Protein 6.8 gm/dl (6.0-8.3)
[2024-07-04] MEDS: DOCUSATE SODIUM 100 MG CAP PO SCH (09:26)
[2024-07-04] MEDS: POLYETHYLENE (MIRALAX) 17 GM PACK PO SCH (09:26)
--- NOTE | 2024-07-04 10:53 | Hospitalist Progress Note ---
Date of Service July 04, 2024 Assessment & Plan (1) Closed pelvic fracture: Plan: CT scan revealed right superior and right inferior pubic rami fracture. He also has an acetabular fracture of the right hip, status post remote right total hip arthroplasty. Pain control measures. Orthopedic consultation appreciated. Nonoperative treatment at this time with toe-touch weightbearing on the right. (2) Acute respiratory failure with hypoxia: Plan: It appears that pulmonary edema and atelectasis are the cause. Supplemental oxygen per nasal cannula to maintain saturation greater than 90%. Continue incentive spirometry and HD (3) Fall: Plan: Mechanical fall resulting in multiple pelvic fractures and right hip acetabular fracture. No syncope. Pain control measures. OT and PT. (4) Elevated troponin: Plan: Telemetry. No evidence of acute coronary syndrome. No chest pain (5) ESRD (end stage renal disease) on dialysis: Plan: Appreciate nephrology consultation and recommendations. Hemodialysis 3 times weekly. Daily lab. Unfortunately his arm AV fistula is not working well. He had a temporary HD catheter placed in the right IJ position on July 03 (6) Diabetes mellitus: Plan: ADA diet. Sliding scale coverage as needed. Continue current medical management (7) Benign essential hypertension: Plan: Stable. Continue current medical management (8) COPD (chronic obstructive pulmonary disease): Plan: Stable. Continue current medical manage Plan It appears he will need SNF placement until the fractures heal. Orthopedics has recommended toe-touch weightbearing on the right for now Admission and Anticipated Discharge Date Admission Date: July 02, 2024 Subjective Alert and oriented. No apparent distress. Case discussed with nephrology. Speech therapy will see the patient today and hopefully a diet can be started. KUB reveals a large stool burden. Colace and MiraLAX have been ordered. Chest x-ray on admission was interpreted as showing pulmonary edema. Will repeat today. He has not been using his incentive spirometry as directed. He was instructed again on proper use. He remains on 6 L of oxygen. Review of Systems 2 Review of Systems: Constitutionalno fever or chills ENTno blurred vision, no double vision, no epistaxis, no sore throat Respiratoryno cough, no wheezing. Short of breath with minimal exertion Cardiacno palpitations, no chest pain, no syncope Joe nausea, vomiting, diarrhea, melena, hematochezia GUno urinary retention, no urinary incontinence, no dysuria, no hematuria Musculoskeletalpelvic pain with weightbearing, no muscle tenderness Skinno rashes, no pruritus Neurono isolated weakness, no paresthesia Psychno depression, no anxiety Physical Exam 2 Physical Exam: General-alert and oriented x3, no fever, no chills HEENT-head atraumatic and normocephalic, pupils equal and reactive to light, extraocular muscles intact Neck-no lymphadenopathy or thyromegaly, trachea midline. Temporary dialysis catheter in place in the right IJ vein position Chest-bibasilar inspiratory rales. No rhonchi. No wheezing. Cardiac-regular rate and rhythm, normal S1 and S2 Abdomen-normal bowel sounds, no hepatosplenomegaly Extremities-no cyanosis, clubbing, or edema Skinscattered ecchymoses on bilateral upper extremities Neuro-cranial nerves II through XII intact, motor and sensory function within normal limits, strength symmetrical with generalized weakness, no focal deficits Psych-normal affect, normal mood Results & Data Results & Data Vital Signs (Past 12 Hours) Vital Signs Temp Pulse Resp BP Pulse Ox O2 Del Method O2 Flow Rate 07/04/24 07:35 60 17 93 Nasal Cannula 6 07/04/24 07:22 36.3 C L 67 19 139/60 94 Nasal Cannula 6 07/04/24 03:54 36.4 C L 61 18 137/54 L 98 High Flow Nasal Cannula 6 07/04/24 00:55 61 18 98 Nasal Cannula 6 07/03/24 23:43 90 High Flow Nasal Cannula 6 07/03/24 23:37 36.3 C L 76 18 151/65 H 88 L High Flow Nasal Cannula 3 Laboratory Results 07/04/24 04:56 07/04/24 04:56 PG Care Time/CCT Total # of Minutes Spent Total Time Spent with Patient: Total time spent is greater than 50% in coordination of care (as documented) at patient's floor/unit and/or counseling patient: Coding Level of Care Code 84997 SUB INP/OBS CARE 3/50MIN Diagnoses Closed pelvic fracture S32.9XXA Encounter type: initial encounter Fracture alignment: displaced Pelvic bone location: unspecified part of pelvis Acute respiratory failure with hypoxia J96.01 Fall W19.XXXA Elevated troponin R79.89 ESRD (end stage renal disease) on dialysis N18.6; Z99.2 Diabetes mellitus E11.9 Benign essential hypertension I10 COPD (chronic obstructive pulmonary disease) J44.9 (1) Closed pelvic fracture Encounter type: initial encounter Fracture alignment: displaced Pelvic bone location: unspecified part of pelvis Qualified Code(s): S32.9XXA - Fracture of unspecified parts of lumbosacral spine and pelvis, initial encounter for closed fracture
--- NOTE | 2024-07-04 11:26 | XRay Report ---
XR chest 1V portable CLINICAL HISTORY: acute hypoxic respiratory failure TECHNIQUE: Single frontal radiograph of the chest was obtained. Comparison: Comparison is made to chest radiograph 07/03/2024 FINDINGS: Lines and tubes are stable. Cardiomegaly is noted. Faint bibasilar airspace opacities are seen. Possi ble small bilateral pleural effusions. IMPRESSION: No significant interval change. Redemonstration of faint bilateral lower lung airspace opacities. Can not exclude bilateral pleural effusions. ACT 112: Negative or not required by law. Electronically signed by: Melquiades Conrad M.D. 07/04/2024 11:24 AM
--- NOTE | 2024-07-04 12:04 | Nephrology Progress Note ---
Date of Service July 04, 2024 Assessment & Plan (1) ESRD (end stage renal disease) on dialysis: Plan: BP and volume status are acceptable. Electrolytes controlled. Resume MWF schedule for dialysis tomorrow. Preliminary orders for HD tomorrow have been entered into the EHR. We will attempt to use the AVG. Outpatient Rx 2.75 hours Q MWF at [facility] via AVG: Qb 450, Qd 800, 2K, 138Na, 32HCO3. RIJ HD catheter was placed at the bedside for treatment yesterday due to difficulty accessing the AVG. Medications are appropriate for IHD. (2) Dialysis AV fistula malfunction: Plan: Temp cath used for HD yesterday. RIJ catheter placed 07/03. Catheter will be left in place until we have a more reliable retirement access. Hopefully we will be able to use the AVG tomorrow. If we cannot access the AVF, permcath placement may need to be considered. (3) Insufficiency fracture of pelvis: Plan: Non-surgical. Pain controlled. PT/OT. Anticipated SNF placement pending appropriate recovery. Admission and Anticipated Discharge Date Admission Date: July 02, 2024 Subjective No acute events overnight. Tolerated HD well yesterday. Net UF 2.2 L. Macho feels reasonably well this AM. He denies dyspnea. He denies lightheadedness or dizziness. No syncope or presyncope. Admits to some constipation. I discussed the plan of care with Dr. Campa this AM. Review of Systems Review of Systems: All systems reviewed & are unremarkable except as noted in HPI & below Physical Exam Constitutional: well developed, + thin and + frail appearing; no acute distress Eyes: + anicteric sclerae ENMT: Mouth: no oral mucosal abnormality and oral mucous membranes not dry Neck: normal visual inspection and trachea midline RIJ HD catheter Respiratory: normal respiratory effort Auscultation: lungs clear to auscultation bilaterally Cardiovascular: Rate/Rhythm: regular rate Heart Sounds: normal S1, normal S2 and + murmur Vessels: + JVD Extremities: + edema and + AV fistula (L BC AVG with thrill and bruit) Musculoskeletal: Extremities: + cyanosis (distal cyanosis of extremities); no clubbing Skin: + turgor decreased and + ecchymosis; no jaundice Neurologic: Motor/Sensory: no tremor and no asterixis Psychiatric: Orientation: alert and oriented x 3 Results & Data Vital Signs (Past 12 Hours) Vital Signs Temp Pulse Resp BP Pulse Ox O2 Del Method O2 Flow Rate 07/04/24 11:20 36.2 C L 96 H 18 137/45 L 94 Nasal Cannula 3 07/04/24 07:35 60 17 93 Nasal Cannula 6 07/04/24 07:22 36.3 C L 67 19 139/60 94 Nasal Cannula 6 07/04/24 03:54 36.4 C L 61 18 137/54 L 98 High Flow Nasal Cannula 6 07/04/24 00:55 61 18 98 Nasal Cannula 6 Laboratory Results Laboratory Results - last 24 hr 07/04/24 04:56 WBC 6.80 RBC 2.84 L Hgb 10.1 L Hct 31.8 L MCV 112.0 H MCH 35.6 H MCHC 31.8 L RDW Std Deviation 54.7 H RDW Coeff of Fidel 13.2 Plt Count 125 L MPV 11.0 Immature Gran % (Auto) 0.3 Neut % (Auto) 78.7 Lymph % (Auto) 11.0 Alexander % (Auto) 7.9 Eos % (Auto) 1.5 Baso % (Auto) 0.6 Neut # (Auto) 5.35 Lymph # (Auto) 0.75 L Alexander # (Auto) 0.54 Eos # (Auto) 0.10 Baso # (Auto) 0.04 Immature Gran # (Auto) 0.02 Macrocytosis Present Sodium 136 Potassium 4.2 Chloride 100 Carbon Dioxide 27 Anion Gap 9 BUN 63 H D Creatinine 4.70 H* D Est Cr Clr Drug Dosing 9.8 eGFR 11.59 BUN/Creatinine Ratio 13.4 Glucose 100 H Calcium 8.6 Magnesium 2.2 Total Bilirubin 0.5 AST 12 L ALT 11 Alkaline Phosphatase 43 Total Protein 6.8 Albumin 3.5 Globulin 3.3 Albumin/Globulin Ratio 1.1 Diagnostic Findings XR chest 1V portable Comparison: Comparison is made to chest radiograph 07/03/2024 FINDINGS: Lines and tubes are stable. Cardiomegaly is noted. Faint bibasilar airspace opacities are seen. Possible small bilateral pleural effusions. IMPRESSION: No significant interval change. Redemonstration of faint bilateral lower lung airspace opacities. Cannot exclude bilateral pleural effusions. PG Care Time/CCT Total # of Minutes Spent Total Time Spent with Patient: Total time spent is greater than 50% in coordination of care (as documented) at patient's floor/unit and/or counseling patient: Coding Level of Care Code 06314 SUB INP/OBS CARE 350MIN Diagnoses ESRD (end stage renal disease) on dialysis N18.6; Z99.2 Dialysis AV fistula malfunction T82.590A Insufficiency fracture of pelvis M84.454A
[2024-07-04] MEDS: GLYCERIN ADULT 12 SUPP/BOX SUPP PR ONE (17:31)
[2024-07-05 06:24] LABS: Hematocrit (blood only) 33.7 % (42.0-52.0); Hemoglobin 10.8 g/dl (14.0-18.0)
[2024-07-05 06:42] LABS: Albumin Level 3.8 gm/dl (3.4-5.0); BUN Creatinine Ratio 14.3 (10-20); Calcium 8.7 mg/dl (8.6-10.3); Creatinine Clr Calc Pharmacy 7.8 ml/min; Phosphorus 6.5 mg/dl (2.5-4.9); Potassium 4.9 mmol/L (3.5-5.1)
--- NOTE | 2024-07-05 09:46 | Nephrology Progress Note ---
Date of Service July 05, 2024 Assessment & Plan (1) ESRD (end stage renal disease) on dialysis: Plan: Orders for HD entered into the EHR and reviewed with towel cabinet repairer. We will attempt to use the AVG. Outpatient Rx 2.75 hours Q MWF at [facility] via AVG: Qb 450, Qd 800, 2K, 138Na, 32HCO3. RIJ HD catheter was placed 07/03 due to difficulty accessing the AVG. The catheter can be removed after HD, if we are able to successfully use the AVG for treatment today. Medications are appropriate for IHD. (2) Dialysis AV fistula malfunction: Plan: Temp cath used for HD Friday. RIJ catheter placed 07/03. Catheter will be left in place until we have a more reliable terminal gauger supervisor access. Hopefully we will be able to use the AVG today. (3) Insufficiency fracture of pelvis: Plan: Non-surgical. Pain controlled. PT/OT. Anticipated SNF placement pending appropriate recovery. Admission and Anticipated Discharge Date Admission Date: July 02, 2024 Subjective No acute events overnight. No complaints this AM. Mr. Benton was on the bedside commode. His remains at the bedside with him. He expressed frustration with his liquid diet. Otherwise no concerns. Review of Systems Review of Systems: All systems reviewed & are unremarkable except as noted in HPI & below Physical Exam Constitutional: + frail appearing; no acute distress Eyes: + anicteric sclerae ENMT: Mouth: no oral mucosal abnormality and oral mucous membranes not dry Neck: normal visual inspection and trachea midline RIJ HD catheter Respiratory: normal respiratory effort Auscultation: lungs clear to auscultation bilaterally Cardiovascular: Rate/Rhythm: + bradycardic Heart Sounds: normal S1, normal S2 and + murmur Extremities: + AV fistula (L BC AVG with thrill and bruit) Musculoskeletal: Extremities: + cyanosis (distal cyanosis of extremities); no clubbing Skin: + ecchymosis; no jaundice Neurologic: Motor/Sensory: no tremor and no asterixis Psychiatric: Orientation: alert and oriented x 3 Results & Data Vital Signs (Past 12 Hours) Vital Signs Temp Pulse Pulse Resp BP Pulse Ox O2 Del Method 07/05/24 07:35 36.4 C L 55 L 18 139/56 L 97 Room Air 07/05/24 07:33 70 16 98 Nasal Cannula 07/05/24 07:00 55 L 07/05/24 03:10 36.8 C 07/05/24 02:44 61 18 153/58 H 97 Nasal Cannula 07/04/24 22:47 57 L 07/04/24 22:45 36.4 C L 59 L 20 152/52 H 95 Nasal Cannula 07/04/24 21:53 Nasal Cannula O2 Flow Rate 07/05/24 07:35 07/05/24 07:33 2.5 07/05/24 07:00 07/05/24 03:10 07/05/24 02:44 2 07/04/24 22:47 07/04/24 22:45 2 07/04/24 21:53 3 Laboratory Results Laboratory Results - last 24 hr 07/05/24 05:55 Hgb 10.8 L Hct 33.7 L Sodium 134 L Potassium 4.9 Chloride 96 L Carbon Dioxide 26 Anion Gap 12 H BUN 79 H Creatinine 5.52 H* D Est Cr Clr Drug Dosing 7.8 eGFR 9.55 BUN/Creatinine Ratio 14.3 Glucose 133 H Calcium 8.7 Phosphorus 6.5 H Albumin 3.8 PG Care Time/CCT Total # of Minutes Spent Total Time Spent with Patient: Total time spent is greater than 50% in coordination of care (as documented) at patient's floor/unit and/or counseling patient: Coding Level of Care Code 65413 SUB INP/OBS CARE 3/50MIN Diagnoses ESRD (end stage renal disease) on dialysis N18.6; Z99.2 Dialysis AV fistula malfunction T82.590A Insufficiency fracture of pelvis M84.454A
[2024-07-05] MEDS: GLYCERIN ADULT 12 SUPP/BOX SUPP PR ONE (13:11)
--- NOTE | 2024-07-05 16:14 | Hospitalist Progress Note ---
Date of Service July 05, 2024 Assessment & Plan (1) Closed pelvic fracture: Plan: S/p mechanical fall at home, Uses walker or wheelchair - denies syncope - CT scan revealed right superior and right inferior pubic rami fracture. Also has an acetabular fracture of the right hip, status post remote right total hip arthroplasty. - Pain well-controlled with current measures - Orthopedic consultation appreciated; Nonoperative treatment at this time with toe-touch weightbearing on the right - PT and OT recommending inpatient rehab - patient was previously not agreeable to inpatient rehab; After discussion with patient and family, patient will now be agreeable to inpatient rehab - case management following insufficiency fracture of pelvis (2) Dysphagia: Plan: patient underweight with history of difficulty maintaining weight and dysphagia - speech consulted - Video swallow 07/05 showed mild oral, severe dysphagia and silent aspiration of all consistencies administered - Extensively discussed with patient and family on 07/05 about the risks and benefits of permissive aspiration; Patient agreeable - will advance diet as tolerated; minced and moist, no straws, mouth care ACHS, head of bed > 30 degrees when eating, eat slowly - will contact speech in the morning to discuss management with patient and family underweight with BMI 17 (3) Acute respiratory failure with hypoxia: Plan: history of COPD; on 2 L O2 as needed at home - CXR on admission showed cardiomegaly, mild pulmonary edema, and bilateral airspace opacities - Supplemental oxygen per nasal cannula to maintain saturation greater than 90% - Continue incentive spirometry and HD - was on 6 L O2 - now weaning - speech consulted, see permissive aspiration workup - continue home inhalers - Wean oxygen as tolerated Acute pulmonary edema (4) Elevated troponin: Plan: trended downward on admission; 54.3 -> 49.1 - No evidence of acute coronary syndrome, No chest pain - EKG on admission showed NSR, right bundle branch block - continue with telemetry (5) ESRD (end stage renal disease) on dialysis: Plan: Hemodialysis MWF - nephrology following - AV fistula not working well - temporary RIJ catheter placed 07/03 - PermCath with vascular in the morning 07/06; n.p.o. after midnight - Continue with daily BMPs -macrocytic anemia-with Macrocytosis-check B12, folate in AM (6) Diabetes mellitus: Plan: - recent A1c 6.4% - ADA diet - Sliding scale coverage as needed (7) Constipation: Plan: patient with constipation due to hospital stay and opioids - Scheduled Colace and Miralax BID - glycerin suppository 07/05 Plan Chronic stable diagnoses: HTN - stable, continue home amlodipine HLD - continue home statin VTE ppx: SCDs Diet: Minced and moist; n.p.o. after midnight with procedure tomorrow Code status: DNR/DNI Dispo: PCU/telemetry; procedure tomorrow for PermCath, will be transferring to inpatient rehab (patient agreeable 07/05) Admission and Anticipated Discharge Date Admission Date: July 02, 2024 Supervising Physician Co-Signing Physician Notes Physician Special Services Coordinator Supervision note: I have personally seen and examined the patient and discussed and verified the kee points of the history and physical along with the plan with FATEMEH Vicente with the following exceptions and/or additions: None Subjective Patient, his , his daughter, and his granddaughter seen at bedside. He is feeling well. He had dialysis today. Extensively discussed permissive aspiration. Patient wishes to continue with soft diet versus n.p.o.. Also discussed inpatient rehab, patient was agreeable with family bedside. He will be having the dialysis catheter placed tomorrow. Review of Systems Review of Systems: see HPI Physical Exam Physical Exam: The patient is awake, alert and oriented 3, well developed and well nourished, normocephalic and atraumatic, in no acute distress. Non-toxic appearing. HEENT- EOMI, mucous membranes moist. Hearing grossly intact. Heart-normal S1 and S2. No murmurs, rubs or gallops. Lungs-clear bilaterally, no respiratory distress, no accessory muscle use. Abdomen-normal bowel sounds and soft. No ascites noted. Non-tender. Extremities- no clubbing, cyanosis, or edema. Diffuse ecchymosis. Psychiatric-normal affect. Results & Data Results & Data Vital Signs (Past 12 Hours) Vital Signs Temp Pulse Pulse Pulse Resp BP BP 07/05/24 15:30 62 07/05/24 15:30 66 136/62 07/05/24 15:00 70 170/68 H 07/05/24 14:30 61 153/69 H 07/05/24 13:30 36.5 C 63 07/05/24 12:29 92 H 16 07/05/24 11:13 36.6 C 57 L 18 94/73 L 07/05/24 10:52 07/05/24 07:35 36.4 C L 55 L 18 139/56 L 07/05/24 07:33 70 16 07/05/24 07:00 55 L Pulse Ox O2 Del Method O2 Flow Rate 07/05/24 15:30 07/05/24 15:30 07/05/24 15:00 07/05/24 14:30 07/05/24 13:30 07/05/24 12:29 95 Nasal Cannula 2 07/05/24 11:13 95 Nasal Cannula 2 07/05/24 10:52 Nasal Cannula 07/05/24 07:35 97 Room Air 07/05/24 07:33 98 Nasal Cannula 2.5 07/05/24 07:00 Laboratory Results reviewed H&H and BMP PG Care Time/CCT Total # of Minutes Spent Total Time Spent with Patient: Total time spent is greater than 50% in coordination of care (as documented) at patient's floor/unit and/or counseling patient: Coding [place] [address] SUB INP/OBS CARE 3/50MIN Patient Type Established Medical Decision Making High Complexity Diagnoses Closed pelvic fracture S32.9XXA Encounter type: initial encounter Fracture alignment: displaced Pelvic bone location: unspecified part of pelvis Dysphagia R13.10 Acute respiratory failure with hypoxia J96.01 Elevated troponin R79.89 ESRD (end stage renal disease) on dialysis N18.6; Z99.2 Diabetes mellitus E11.9 Constipation K59.00 (1) Closed pelvic fracture Encounter type: initial encounter Fracture alignment: displaced Pelvic bone location: unspecified part of pelvis Qualified Code(s): S32.9XXA - Fracture of unspecified parts of lumbosacral spine and pelvis, initial encounter for closed fracture
--- NOTE | 2024-07-05 17:25 | Fluoroscopy Report ---
MODIFIED BARIUM SWALLOW CLINICAL HISTORY: assess for aspiration COMPARISON STUDY: None. FLUOROSCOPY TIME: 1.49 minutes. Ka,r: 4.40 mGy. TECHNIQUE: A modified barium swallow was performed in conjunction with Speech Pathology. The patient ingested varying consistencies of barium containing material. Video fluoroscopy was performed. FINDINGS: There were multiple episodes of silent tracheal aspiration with thin liquids by straw. Ther e was a small amount of tracheal aspiration with nectar thick liquids. There is trace tracheal aspira tion with pudding consistencies as well as trace tracheal aspiration with cracker and pudding consist ency. Moderate residuals were noted within the piriform sinuses. IMPRESSION: 1. Multiple episodes of silent tracheal aspiration with thin liquids by straw. In addition, a small a mount of aspiration with the additional consistencies, as described above. 2. Full recommendations by Speech pathology to follow. ACT 112: Negative or not required by law. Electronically signed by: Stu Alvarado M.D. 07/05/2024 5:24 PM
[2024-07-06 08:26] LABS: Basophils # (auto) 0.03 K/uL (0.00-0.20); Basophils % (auto) 0.4 %; Eosinophils # (auto) 0.17 K/uL (0.00-0.50); Eosinophils % (auto) 2.1 %; Hematocrit (blood only) 31.3 % (42.0-52.0); Hemoglobin 10.2 g/dl (14.0-18.0); Immature Granulocytes # (auto) 0.04 K/uL (0.01-0.20); Immature Granulocytes % (auto) 0.5 %; Lymphocytes # (auto) 0.96 K/uL (1.20-3.40); Lymphocytes % (auto) 11.9 %; Mean Corpuscular Hemoglobin 35.7 pg (25.0-34.0); Mean Corpuscular Hgb Conc 32.6 g/dL (32.0-36.0); Mean Corpuscular Volume 109.4 fL (80.0-100.0); Mean Platelet Volume 11.6 fL (9.4-12.4); Monocytes # (auto) 0.68 K/uL (0.11-0.59); Monocytes % (auto) 8.4 %; Neutrophils # (auto) 6.17 K/uL (1.40-6.50); Neutrophils % (auto) 76.7 %; Platelet Count 132 K/uL (130-400); RDW Coefficient of Variation 13.2 % (11.5-14.5); RDW Standard Deviation 52.8 fL (36.4-46.3); Red Blood Count 2.86 M/uL (4.70-6.10); White Blood Count 8.05 K/ul (4.8-10.8)
[2024-07-06 08:41] LABS: BUN Creatinine Ratio 11.5 (10-20); Calcium 7.9 mg/dl (8.6-10.3); Creatinine Clr Calc Pharmacy 10.8 ml/min; Potassium 4.2 mmol/L (3.5-5.1)
[2024-07-06 09:07] LABS: Folate (Folic Acid),Ser orPlas > 22.30 ng/ml (>5.38)
[2024-07-06 09:08] LABS: Vitamin B12 985 pg/ml (180-914)
--- NOTE | 2024-07-06 09:48 | Consultation ---
Date of Consultation July 06, 2024 Assessment & Plan (1) ESRD (end stage renal disease) on dialysis: Pt with functioning LUE AV graft, however, inpt unit having extreme difficulty cannulating it. Graft is visible and easily palpated with excellent thrill. R neck with small hematoma from temp line removal. Planning on permcath insertion this AM. Procedure, risks, benefits and alternatives discussed with pt and present by myself at Dr Bo's request. Pt and express understanding and agreement to proceed. Pt requested his sign consent forms. History of Present Illness Reason for Consultation: ESRD on HD Attending Physician: Gela Dutta MD History of Present Illness 84yo m with hx of AAA s/p EVAR, HTN, ESRD on HD, PMR, COPD, hypercholesterolemia, hemochromatosis, melanoma, DMII, DJD, admitted with pelvic/hip fx after a fall, seen in consultation today for permcath insertion for HD. Pt known to Dr Bo's practice for EVAR as well as LUE AV graft for HD access. Pt a very poor historian presently. Per , pt graft was being utilized at outpt unit, but there was difficulty cannulating it and only one nurse seemed to be able to cannulate it properly. While running HD, it seems to be ok. Pt with multiple infiltrations, and inpt unit states cannot cannulate it. Pt used a temp HD catheter for a few days, this was removed yesterday after treatment in preparation for permcath insertion today. Pt admits BL heel pain and some pelvic/hip pain. Denies RIVERA, fever, chest pain, SOB, abd pain, N/V, other complaints. Allergies Allergy/AdvReac Type Severity Reaction Status Date / Time morphine Allergy Severe Hypoxemia Verified 04/13/24 14:49 bupropion AdvReac Intermediate Depression Verified 04/13/24 14:49 oxycodone AdvReac Intermediate Depression; Verified 04/13/24 14:49 altered mental status Home Medications Medication Instructions Recorded Confirmed Type coenzyme Q10 200 mg tablet 200 mg PO QAM 02/23/19 07/01/24 History dorzolamide 2 % eye drops 1 drp OPB HS 12/14/21 07/01/24 History cartilage 40 mg-collagen II 10 1 tab PO QAM 07/24/23 07/01/24 History mg-boron 5 mg-hyaluronate 3.3 mg tablet (PutPlace) multivitamin 1 tab PO QAM 07/24/23 07/01/24 History calcium 600 mg-D3 20 mcg-magnesium 1 tab PO DAILY 04/13/24 07/01/24 History 50 ov-Zp-rwqpvn-cody-boron tablet (Calcium 600-D3 Plus (mag-zinc)) fluticasone 250 mcg-salmeterol 50 1 inh inhalation BID #60 ea 04/13/24 07/01/24 Rx mcg/dose blistr powdr for inhalation (Wixela Inhub) levalbuterol tartrate 45 2 inh inhalation Q6H #15 grams 04/13/24 07/01/24 Rx mcg/actuation aerosol inhaler simvastatin 20 mg tablet 20 mg PO QAM #90 tabs 04/13/24 07/01/24 Rx amlodipine 10 mg tablet (Norvasc) 10 mg PO QAM #90 tabs 05/10/24 07/01/24 Rx calcium acetate(phosphat bind) 667 1,334 mg PO TIDM 07/01/24 07/01/24 History mg capsule vitamin B complex-vitamin C-folic 1 tab PO QPM 07/01/24 07/01/24 History acid 0.8 mg tablet (Lilo-Luis) Patient History Medical History Limb alert care status LUE History of intestinal obstruction Arthritis Hemod[facility] patient MF, [facility] [place] Using port for dialysis (followed by Dr. Luis) BPH (benign prostatic hyperplasia) Inguinal hernia present Diabetes mellitus, type 2 On home oxygen therapy 2L PRN (hx non-compliance, uses few times/week with activity- indicates he does not use as often as indicated but voices that he will be compliant/monitor oxygen levels closely prior to upcoming surgery) Hypercholesterolemia Glaucoma Emphysema lung Surgical History H/O bilateral hip replacements S/P arteriovenous (AV) fistula creation left wrist. non-functioning. H/O vascular surgery dialysis cath (temporary) Rt chest History of tooth extraction H/O non-cataract eye surgery laser, R/L (for glaucoma) H/O foot surgery R/L History of total hip replacement Left (04/2016), Right (08/2016) History of cataract surgery R/L History of liver biopsy History of umbilical hernia repair H/O endovascular stent graft for abdominal aortic aneurysm [address] Bo H/O vasectomy 1970 Family History Father Diabetes Hypertension Mother Pancreatic cancer Diabetes Cancer Stroke Sister Diabetes Myocardial infarction Hypertension Family/Other Diabetes Coronary heart disease Other Heart disease No family history of adverse response to anesthesia Denies family history of Ovarian cancer Prostate cancer Breast cancer Colorectal cancer Social History Smoking Status: Former smoker Tobacco Type: Cigarettes Age Started Using Tobacco: 12; Age Quit Using Tobacco: 68; packs per day: 2; Second Hand Exposure: No; Do You Dip or Chew Tobacco: No; Tobacco Cessation Education Requested by Patient: No Hx Alcohol Use: No Hx Substance Use: No Preferred Language: Yi Communication Ability: Effective Communication Ability Comment: [place] Visual Impairment: Partially Limited Hearing Ability: Hard of Hearing Risk Control Manager Required: No Beliefs That Will Affect Care: None marital status: Current Living Situation: Spouse current occupational status: retired How many Children do You have: 1 Other Information That Helps Us Care for You: No Feels Safe at Home: Yes Safety Concerns: Feels Safe At This Time Childhood Exposure to Second-Hand Smoke: Yes (father) Diet: diabetic caffeine: Yes (coffee - 1-2 cups/then decaf in afternoon) during the past year weight has: decreased > 10 lbs Dental Care, Regularly: No Physical Activity Frequency: Daily Physical Activity Frequency Comment: house/yard work Seatbelt Use: always Sunscreen Use: Yes Do you think of yourself as: straight/heterosexual Assistive Devices: Cane Review of Systems Review of Systems: All systems reviewed & are unremarkable except as noted in HPI & below Physical Exam Constitutional: WD/WN, vitals as above + ill appearing, cooperative, comfortable and + malnourished; not in distress ENMT: Ears: + hearing impairment Neck: trachea midline R neck with small hematoma from temp line removal. Respiratory: normal respiratory effort Auscultation: + diminished lung sounds, + crackles and + wheezes Cardiovascular: Rate/Rhythm: regular rate and regular rhythm Vessels: p osterior tibial pulses present (nonpalpable), dorsalis pedis pulses present (nonpalpable) and radial pulses present; + abnormal peripheral pulses Extremities: normal capillary refill and + AV fistula; no edema LUE upper arm AV graft with excellent thrill/bruit. graft very superficial and visible. significant local ecchymosis, but no hematoma noted. Gastrointestinal (Abdomen): Inspection/Auscultation: abdomen normal to inspection and normal bowel sounds Percussion/Palpation: abdomen soft; abdomen nontender Musculoskeletal: no cyanosis or clubbing, extremities motor strength 5/5 Skin: no rashes, warm and dry Neurologic: moves all extremities, awake and + confused (mildly); no focal motor deficits Psychiatric: Orientation: alert and oriented x 3 Affect: + anxious affect Results & Data Vital Signs (Past 12 Hours) Vital Signs Temp Pulse Pulse Resp BP Pulse Ox Pulse Ox 07/06/24 08:55 36.8 C 73 14 140/65 90 07/06/24 07:36 36.5 C 68 16 146/63 H 95 07/06/24 07:22 71 17 90 07/06/24 02:56 36.6 C 71 18 136/64 95 07/06/24 00:48 62 16 95 07/06/24 00:00 62 07/05/24 23:18 94 07/05/24 22:55 36.9 C 61 18 126/43 L 94 O2 Del Method O2 Del Method O2 Flow Rate O2 Flow Rate 07/06/24 08:55 Nasal Cannula 3 07/06/24 07:36 Room Air 07/06/24 07:22 Nasal Cannula 2 07/06/24 02:56 Nasal Cannula 07/06/24 00:48 Nasal Cannula 2 07/06/24 00:00 07/05/24 23:18 Nasal Cannula 2 07/05/24 22:55 Nasal Cannula
[2024-07-06] MEDS: ceFAZolin 2000MG 2,000 MG/15 ML SYR IV ONE (10:00)
[2024-07-06] MEDS: fentaNYL citrate PF 100 MCG/2 ML VIAL ONE (10:20)
[2024-07-06] MEDS: MIDAZOLAM HCL 1 MG/ML 2ML VIAL ONE (10:20)
[2024-07-06] MEDS: HEPARIN SOD (PORCINE) 5,000 UNITS/ML VIAL ONE (10:44)
[2024-07-06] MEDS: LIDOCAINE 1% LOCAL 20 ML VIAL ONE (11:08)
--- NOTE | 2024-07-06 11:12 | Post Operative Brief Note ---
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
--- NOTE | 2024-07-06 11:20 | Pre Anesthesia Assessment ---
Date of Service July 06, 2024 Pre Sedation Assessment Vital Signs Temp Pulse Pulse Pulse Resp BP BP 07/06/24 11:10 75 14 139/62 07/06/24 11:05 72 14 143/57 H 07/06/24 11:00 72 14 142/57 H 07/06/24 10:55 74 14 144/60 H 07/06/24 10:50 75 14 153/72 H 07/06/24 10:45 78 14 153/72 H 07/06/24 10:40 72 14 147/58 H 07/06/24 10:35 70 14 148/56 H 07/06/24 10:30 70 14 147/54 H 07/06/24 10:19 71 07/06/24 10:15 72 14 159/67 H 07/06/24 10:12 72 14 161/65 H 07/06/24 08:55 36.8 C 73 14 140/65 07/06/24 07:36 36.5 C 68 16 146/63 H 07/06/24 07:22 71 17 07/06/24 02:56 36.6 C 71 18 136/64 07/06/24 00:48 62 16 07/06/24 00:00 62 07/05/24 23:18 07/05/24 22:55 36.9 C 61 18 126/43 L 07/05/24 21:28 07/05/24 19:58 69 22 140/56 L 07/05/24 19:53 69 16 07/05/24 19:42 36.4 C L 68 16 131/47 L 07/05/24 19:20 72 20 146/52 H 07/05/24 19:00 70 20 133/72 07/05/24 18:50 36.7 C 75 20 146/71 H 07/05/24 17:10 36.5 C 71 148/70 H 07/05/24 17:00 61 118/78 07/05/24 16:30 60 117/91 07/05/24 16:00 66 149/60 H 07/05/24 15:30 62 07/05/24 15:30 66 136/62 07/05/24 15:00 70 170/68 H 07/05/24 14:30 61 153/69 H 07/05/24 13:30 36.5 C 63 07/05/24 12:29 92 H 16 Pulse Ox Pulse Ox O2 Del Method O2 Del Method O2 Flow Rate O2 Flow Rate 07/06/24 11:10 98 07/06/24 11:05 98 07/06/24 11:00 98 07/06/24 10:55 98 07/06/24 10:50 98 07/06/24 10:45 98 07/06/24 10:40 98 07/06/24 10:35 98 07/06/24 10:30 98 07/06/24 10:19 07/06/24 10:15 98 07/06/24 10:12 98 Oxymask 07/06/24 08:55 90 Nasal Cannula 3 07/06/24 07:36 95 Room Air 07/06/24 07:22 90 Nasal Cannula 2 07/06/24 02:56 95 Nasal Cannula 07/06/24 00:48 95 Nasal Cannula 2 07/06/24 00:00 07/05/24 23:18 94 Nasal Cannula 2 07/05/24 22:55 94 Nasal Cannula 07/05/24 21:28 High Flow Nasal Cannula 2 07/05/24 19:58 91 Nasal Cannula 2.5 07/05/24 19:53 97 Nasal Cannula 2 07/05/24 19:42 95 Nasal Cannula 2 07/05/24 19:20 92 Nasal Cannula 2.5 07/05/24 19:00 97 Nasal Cannula 2 07/05/24 18:50 95 Nasal Cannula 2 07/05/24 17:10 07/05/24 17:00 07/05/24 16:30 07/05/24 16:00 07/05/24 15:30 07/05/24 15:30 07/05/24 15:00 07/05/24 14:30 07/05/24 13:30 07/05/24 12:29 95 Nasal Cannula 2 Cardiovascular RRR, no murmur, no edema Respiratory normal respiratory effort, lungs clear to auscultation Pre-Sedation Airway Assessment Smoking Status: Former smoker Hx Sleep Apnea: No Short, Thick Neck: No Thyromental Distance: > or= 3.5 Finger Breadths Oral Cavity: + WNL Mallampati Class: III ASA: ASA3 NPO Status Date of Last Intake of Fluids: 07/05/24 Time of Last Intake of Fluids: 23:00 Date of Last Intake of Solid Food: 07/05/24 Time of Last Intake of Solid Foods: 23:00 Procedure Planning Contraindications for Sedation: none Current Medications Reviewed: Yes Notes The planned sedation has been discussed with the patient. Informed Consent was obtained. I have identified the patient, determined the appropriateness of sedation and have assessed the patient immediately prior to the procedure. All medicine(s) and interventions are by my order.
--- NOTE | 2024-07-06 11:22 | Post Anesthesia Assessment ---
Date of Service July 06, 2024 Post Sedation Assessment Vital Signs Temp Pulse Pulse Pulse Resp BP BP 07/06/24 11:17 71 14 141/68 H 07/06/24 11:15 71 14 146/68 H 07/06/24 11:10 75 14 139/62 07/06/24 11:05 72 14 143/57 H 07/06/24 11:00 72 14 142/57 H 07/06/24 10:55 74 14 144/60 H 07/06/24 10:50 75 14 153/72 H 07/06/24 10:45 78 14 153/72 H 07/06/24 10:40 72 14 147/58 H 07/06/24 10:35 70 14 148/56 H 07/06/24 10:30 70 14 147/54 H 07/06/24 10:19 71 07/06/24 10:15 72 14 159/67 H 07/06/24 10:12 72 14 161/65 H 07/06/24 08:55 36.8 C 73 14 140/65 07/06/24 07:36 36.5 C 68 16 146/63 H 07/06/24 07:22 71 17 07/06/24 02:56 36.6 C 71 18 136/64 07/06/24 00:48 62 16 07/06/24 00:00 62 07/05/24 23:18 07/05/24 22:55 36.9 C 61 18 126/43 L 07/05/24 21:28 07/05/24 19:58 69 22 140/56 L 07/05/24 19:53 69 16 07/05/24 19:42 36.4 C L 68 16 131/47 L 07/05/24 19:20 72 20 146/52 H 07/05/24 19:00 70 20 133/72 07/05/24 18:50 36.7 C 75 20 146/71 H 07/05/24 17:10 36.5 C 71 148/70 H 07/05/24 17:00 61 118/78 07/05/24 16:30 60 117/91 07/05/24 16:00 66 149/60 H 07/05/24 15:30 62 07/05/24 15:30 66 136/62 07/05/24 15:00 70 170/68 H 07/05/24 14:30 61 153/69 H 07/05/24 13:30 36.5 C 63 07/05/24 12:29 92 H 16 Pulse Ox Pulse Ox O2 Del Method O2 Del Method O2 Flow Rate O2 Flow Rate 07/06/24 11:17 98 07/06/24 11:15 98 07/06/24 11:10 98 07/06/24 11:05 98 07/06/24 11:00 98 07/06/24 10:55 98 07/06/24 10:50 98 07/06/24 10:45 98 07/06/24 10:40 98 07/06/24 10:35 98 07/06/24 10:30 98 07/06/24 10:19 07/06/24 10:15 98 07/06/24 10:12 98 Oxymask 07/06/24 08:55 90 Nasal Cannula 3 07/06/24 07:36 95 Room Air 07/06/24 07:22 90 Nasal Cannula 2 07/06/24 02:56 95 Nasal Cannula 07/06/24 00:48 95 Nasal Cannula 2 07/06/24 00:00 07/05/24 23:18 94 Nasal Cannula 2 07/05/24 22:55 94 Nasal Cannula 07/05/24 21:28 High Flow Nasal Cannula 2 07/05/24 19:58 91 Nasal Cannula 2.5 07/05/24 19:53 97 Nasal Cannula 2 07/05/24 19:42 95 Nasal Cannula 2 07/05/24 19:20 92 Nasal Cannula 2.5 07/05/24 19:00 97 Nasal Cannula 2 07/05/24 18:50 95 Nasal Cannula 2 07/05/24 17:10 07/05/24 17:00 07/05/24 16:30 07/05/24 16:00 07/05/24 15:30 07/05/24 15:30 07/05/24 15:00 07/05/24 14:30 07/05/24 13:30 07/05/24 12:29 95 Nasal Cannula 2 Recovery Score Activity: Moves 4 extremities Respiration: Deep Breath/Cough Circulation: +/-20% PreAnes Value Consciousness: Fully Awake Oxygen Saturation: > 92% On Room Air Post Anesthesia Score: 10 Discharge Sedation Level of Care: Fast Track Phase II Post Sedation Plan On clinical assessment, the patient appears to have tolerated the sedation without complications. Patient is recovering as anticipated. Patient will continue to be monitored by nursing and may be discharged when sedation discharge criteria are met per below protocol. Upon Completions of procedure up to 15 minutes continue every 5 minute vital signs and the P.A.R. score; then discharge to a Phase I or Fast Track to Phase II per the following guidelines: * Discharge Patient to appropriate Phase II area if PAR is 8 or greater or return to pre- procedure baseline. The post - procedure orders will be as directed. * If PAR score is less than 8 or not return to pre-procedure baseline then patient will follow Phase I monitoring till PAR is reached for Phase II. The Phase I may be done in procedure room or may call to secure a Phase I area. * If naloxone or flumazenil are used for reversal, hold in Phase I for continued monitoring from when last reversal dose was given for a minimum of 60 minutes or longer pending the nurse and/or physician discretion of patient condition before discharge to Phase II. Please call the Sedation Physician to re-evaluate and complete post-note for discharge to Phase II area. Do NOT discharge from procedure sedation or Phase 1 until post- sedation evaluation note is complete by procedure /sedation MD Sedation Discharge Instructions to be given to the patient at discharge to home.
--- NOTE | 2024-07-06 11:25 | Operative Report ---
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 No appropriate target. The left with patent internal jugular vein. Dialysis line placed under fluoroscopic guidance in appropriate position within the SVC Specimens None Anesthesia Type MAC Complications None Indications ESRD with malfunctioning AV access in need of dialyisis access Description of Procedure Patient was taken to the angio suite and placed in the supine position. He was given 1mg Versed and 25 mcg fentanyl. The right of the neck and chest wall were prepped and draped in a sterile manner. Using ultrasound, the right internal jugular was evaluated and found to be occluded. There were small venous collaterals but no appropriate target for line placement. Decision was made to change access site. The left side of the neck and chest wall were then prepped and draped in a sterile manner. Local anesthesia was then administered to the appropriate areas of the neck and chest wall. Ultrasound was then used to locate the left internal jugular vein. The vein compressed easily, had no filing defects, and was patent. The vein was then punctured under direct ultrasound imaging. A guidewire was then passed centrally under fluoroscopic imaging. A stab wound was then made in the anterior chest wall and a 19 cm permcath was passed from the stab wound on the chest wall to the puncture site on the neck. The puncture site was then dilated till the 14Fr peel away sheath was inserted. The permcath was then inserted through the sheath to a central position in the distal superior vena cava. The peel away sheath was then removed. The catheter was then sutured in place using nylon sutures. The puncture was then closed using a 4-0 Vicryl subcuticular suture. Dermabond was used for a dressing on the puncture site. Both ports aspirated and flushed easily and were then packed with heparin. A sterile dressing was applied to the catheter. The patient left the angio suite in good condition and tolerated the procedure well. Dr. Bo was present and scrubbed for the entire procedure. I attest to the content of the Intraoperative Record and any orders documented therein. Any exceptions are noted below. Supervising Physician Co-Signing Physician Notes Macho Bo MD
--- NOTE | 2024-07-06 13:58 | Hospitalist Progress Note ---
Date of Service July 06, 2024 Assessment & Plan (1) Closed pelvic fracture: Plan: S/p mechanical fall at home, Uses walker or wheelchair - denies syncope - CT scan revealed right superior and right inferior pubic rami fracture. Also has an acetabular fracture of the right hip, status post remote right total hip arthroplasty. - Pain well-controlled with current measures - Orthopedic consultation appreciated; Nonoperative treatment at this time with toe-touch weightbearing on the right - PT and OT recommending inpatient rehab - referrals placed to [facility]; family would like patient close to them in [place] insufficiency fracture of pelvis (2) Dysphagia: Plan: Permissive aspiration patient underweight with history of difficulty maintaining weight and dysphagia - speech consulted - Video swallow 07/05 showed mild oral, severe dysphagia and silent aspiration of all consistencies administered - Extensively discussed with patient and family on 07/05 about the risks and benefits of permissive aspiration; Patient agreeable - easy to chew diet; no straws, mouth care ACHS, head of bed > 30 degrees when eating, eat slowly - speech spoke with patient's family 07/06 to answer all questions and provided education on management of permissive aspiration underweight with BMI 17 (3) Acute respiratory failure with hypoxia: Plan: history of COPD; on 2 L O2 as needed at home - CXR on admission showed cardiomegaly, mild pulmonary edema, and bilateral airspace opacities - Supplemental oxygen per nasal cannula to maintain saturation greater than 90% - Continue incentive spirometry and HD - was on 6 L O2 - now weaned to 2LNC - speech consulted, see permissive aspiration workup - continue home inhalers - Wean oxygen as tolerated Acute pulmonary edema (4) Elevated troponin: Plan: trended downward on admission; 54.3 -> 49.1 - No evidence of acute coronary syndrome, No chest pain - EKG on admission showed NSR, right bundle branch block - continue with telemetry - showing NSR (5) ESRD (end stage renal disease) on dialysis: Plan: Hemodialysis MWF - nephrology following - AV fistula not working well - temporary RIJ catheter placed 07/03 - PermCath with vascular 07/06 - Postop bleeding resolved - Continue with daily BMPs macrocytic anemia with macrocytosis on cbc - B12 elevated, folate within normal limits - likely of chronic disease/ due to hemodialysis or perhaps MDS-follow as outpt (6) Diabetes mellitus: Plan: - recent A1c 6.4% - ADA diet - Sliding scale coverage as needed (7) Constipation: Plan: patient with constipation due to hospital stay and opioids - Scheduled Colace and Miralax BID - glycerin suppository 07/05 Plan Chronic stable diagnoses: HTN - stable, continue home amlodipine HLD - continue home statin VTE ppx: SCDs Diet: easy to chew, dialysis diet Code status: DNR/DNI Dispo: PCU/telemetry; patient medically stable for discharge when accepted at rehab facility Admission and Anticipated Discharge Date Admission Date: July 02, 2024 Supervising Physician Co-Signing Physician Notes Physician Clinical Informatics Director Supervision note: I have personally seen and examined the patient and discussed and verified the kee points of the history and physical along with the plan with FATEMEH Vicente with the following exceptions and/or additions: None Subjective Patient seen at bedside postoperatively with family present. Doing well. He and the family are happy with speech recommending that he can continue with a regular, easy to chew diet. He is awaiting rehab placement. Questions and concerns answered. Tele: Sinus bradycardia with occasional PVC, HR 60-70. Review of Systems Review of Systems: see HPI Physical Exam Physical Exam: The patient is lethargic post-op, well developed and well nourished, normocephalic and atraumatic, in no acute distress. Non-toxic appearing. HEENT- EOMI, mucous membranes moist. Hearing grossly intact. Heart-normal S1 and S2. No murmurs, rubs or gallops. Lungs-clear bilaterally, no respiratory distress, no accessory muscle use. Abdomen-normal bowel sounds and soft. No ascites noted. Non-tender. Extremities- no clubbing, cyanosis, or edema. Diffuse ecchymosis. Psychiatric-normal affect. Results & Data Results & Data Vital Signs (Past 12 Hours) Vital Signs Temp Pulse Pulse Resp BP Pulse Ox O2 Del Method 07/06/24 12:12 36.8 C 70 16 148/50 H 94 Nasal Cannula 07/06/24 11:53 18 95 Nasal Cannula 07/06/24 11:46 36.3 C L 74 18 144/61 H 97 Room Air 07/06/24 11:22 70 14 142/70 H 98 07/06/24 11:17 71 14 141/68 H 98 07/06/24 11:15 71 14 146/68 H 98 07/06/24 11:10 75 14 139/62 98 07/06/24 11:05 72 14 143/57 H 98 07/06/24 11:00 72 14 142/57 H 98 07/06/24 10:55 74 14 144/60 H 98 07/06/24 10:50 75 14 153/72 H 98 07/06/24 10:45 78 14 153/72 H 98 07/06/24 10:40 72 14 147/58 H 98 07/06/24 10:35 70 14 148/56 H 98 07/06/24 10:30 70 14 147/54 H 98 07/06/24 10:19 71 07/06/24 10:15 72 14 159/67 H 98 07/06/24 10:12 72 14 161/65 H 98 Oxymask 07/06/24 08:55 36.8 C 73 14 140/65 90 Nasal Cannula 07/06/24 07:36 36.5 C 68 16 146/63 H 95 Room Air 07/06/24 07:22 71 17 90 Nasal Cannula 07/06/24 02:56 36.6 C 71 18 136/64 95 Nasal Cannula O2 Flow Rate 07/06/24 12:12 2 07/06/24 11:53 2 07/06/24 11:46 2 07/06/24 11:22 07/06/24 11:17 07/06/24 11:15 07/06/24 11:10 07/06/24 11:05 07/06/24 11:00 07/06/24 10:55 07/06/24 10:50 07/06/24 10:45 07/06/24 10:40 07/06/24 10:35 07/06/24 10:30 07/06/24 10:19 07/06/24 10:15 07/06/24 10:12 07/06/24 08:55 3 07/06/24 07:36 07/06/24 07:22 2 07/06/24 02:56 Laboratory Results Reviewed CBC, BMP, B12, and folate PG Care Time/CCT Total # of Minutes Spent Total Time Spent with Patient: Total time spent is greater than 50% in coordination of care (as documented) at patient's floor/unit and/or counseling patient: Coding [place] [address] SUB INP/OBS CARE MIN Patient Type Established Medical Decision Making Moderate Complexity Diagnoses Closed pelvic fracture S32.9XXA Encounter type: initial encounter Fracture alignment: displaced Pelvic bone location: unspecified part of pelvis Dysphagia R13.10 Acute respiratory failure with hypoxia J96.01 Elevated troponin R79.89 ESRD (end stage renal disease) on dialysis N18.6; Z99.2 Diabetes mellitus E11.9 Constipation K59.00 (1) Closed pelvic fracture Encounter type: initial encounter Fracture alignment: displaced Pelvic bone location: unspecified part of pelvis Qualified Code(s): S32.9XXA - Fracture of unspecified parts of lumbosacral spine and pelvis, initial encounter for closed fracture
--- NOTE | 2024-07-06 17:17 | Nephrology Progress Note ---
Date of Service July 06, 2024 Assessment & Plan (1) ESRD (end stage renal disease) on dialysis: Plan: BP and volume status acceptable. Adequate clearance with HD yesterday. Tolerated treatment well. Plan for next dialysis tomorrow. Outpatient Rx 2.75 hours Q MWF at [facility] via AVG: Qb 450, Qd 800, 2K, 138Na, 32HCO3. RIJ HD catheter was placed 07/03 due to difficulty accessing the AVG. The catheter can be removed after HD, if we are able to successfully use the AVG for treatment today. Medications are appropriate for IHD. (2) Dialysis AV fistula malfunction: Plan: s/p permcath placement today by Dr. Bo. (3) Insufficiency fracture of pelvis: Plan: Non-surgical. Pain controlled. PT/OT. Anticipated Rehab placement pending. Admission and Anticipated Discharge Date Admission Date: July 02, 2024 Subjective No acute events overnight. Macho was seen and evaluated following catheter placement earlier today. I met with his family briefly this AM. Plan of care was discussed with the hospitalist team. Review of Systems Review of Systems: All systems reviewed & are unremarkable except as noted in HPI & below Physical Exam Constitutional: + frail appearing; no acute distress Eyes: + anicteric sclerae ENMT: Mouth: oral mucous membranes not dry Neck: normal visual inspection and trachea midline LIJ TDC with some bleeding on dressing Respiratory: normal respiratory effort Auscultation: lungs clear to auscultation bilaterally Cardiovascular: Rate/Rhythm: + bradycardic Heart Sounds: normal S1, normal S2 and + murmur Extremities: + AV fistula (L BC AVG with thrill and bruit) Musculoskeletal: Extremities: no cyanosis and no clubbing Skin: + ecchymosis; no jaundice Neurologic: Motor/Sensory: no tremor and no asterixis Psychiatric: Orientation: alert and oriented x 3 Results & Data Vital Signs (Past 12 Hours) Vital Signs Temp Pulse Pulse Resp BP Pulse Ox O2 Del Method 07/06/24 15:41 36.3 C L 62 17 151/50 H 96 Nasal Cannula 07/06/24 15:20 36.3 C L 64 16 142/58 H 98 Nasal Cannula 07/06/24 15:07 36.4 C L 62 18 151/50 H 96 Room Air 07/06/24 14:45 36.4 C L 65 18 141/62 H 95 Nasal Cannula 07/06/24 12:25 36.3 C L 63 18 141/58 H 95 Nasal Cannula 07/06/24 12:12 36.8 C 70 16 148/50 H 94 Nasal Cannula 07/06/24 11:53 18 95 Nasal Cannula 07/06/24 11:46 36.3 C L 74 18 144/61 H 97 Room Air 07/06/24 11:22 70 14 142/70 H 98 07/06/24 11:17 71 14 141/68 H 98 07/06/24 11:15 71 14 146/68 H 98 07/06/24 11:10 75 14 139/62 98 07/06/24 11:05 72 14 143/57 H 98 07/06/24 11:00 72 14 142/57 H 98 07/06/24 10:55 74 14 144/60 H 98 07/06/24 10:50 75 14 153/72 H 98 07/06/24 10:45 78 14 153/72 H 98 07/06/24 10:40 72 14 147/58 H 98 07/06/24 10:35 70 14 148/56 H 98 07/06/24 10:30 70 14 147/54 H 98 07/06/24 10:19 71 07/06/24 10:15 72 14 159/67 H 98 07/06/24 10:12 72 14 161/65 H 98 Oxymask 07/06/24 08:55 36.8 C 73 14 140/65 90 Nasal Cannula 07/06/24 07:36 36.5 C 68 16 146/63 H 95 Room Air 07/06/24 07:22 71 17 90 Nasal Cannula O2 Flow Rate 07/06/24 15:41 2 07/06/24 15:20 2 07/06/24 15:07 07/06/24 14:45 2 07/06/24 12:25 2 07/06/24 12:12 2 07/06/24 11:53 2 07/06/24 11:46 2 07/06/24 11:22 07/06/24 11:17 07/06/24 11:15 07/06/24 11:10 07/06/24 11:05 07/06/24 11:00 07/06/24 10:55 07/06/24 10:50 07/06/24 10:45 07/06/24 10:40 07/06/24 10:35 07/06/24 10:30 07/06/24 10:19 07/06/24 10:15 07/06/24 10:12 07/06/24 08:55 3 07/06/24 07:36 07/06/24 07:22 2 Laboratory Results Laboratory Results - last 24 hr 07/06/24 07:42 WBC 8.05 RBC 2.86 L Hgb 10.2 L Hct 31.3 L MCV 109.4 H MCH 35.7 H MCHC 32.6 RDW Std Deviation 52.8 H RDW Coeff of Fidel 13.2 Plt Count 132 MPV 11.6 Immature Gran % (Auto) 0.5 Neut % (Auto) 76.7 Lymph % (Auto) 11.9 [place] % (Auto) 8.4 Eos % (Auto) 2.1 Baso % (Auto) 0.4 Neut # (Auto) 6.17 Lymph # (Auto) 0.96 L [place] # (Auto) 0.68 H Eos # (Auto) 0.17 Baso # (Auto) 0.03 Immature Gran # (Auto) 0.04 Sodium 136 Potassium 4.2 Chloride 101 Carbon Dioxide 26 Anion Gap 9 BUN 46 H D Creatinine 3.99 H D Est Cr Clr Drug Dosing 10.8 eGFR 14.10 BUN/Creatinine Ratio 11.5 Glucose 100 H Calcium 7.9 L Vitamin B12 985 H Folate > 22.30 PG Care Time/CCT Total # of Minutes Spent Total Time Spent with Patient: Total time spent is greater than 50% in coordination of care (as documented) at patient's floor/unit and/or counseling patient: Coding Level of Care Code 52569 SUB INP/OBS CARE 3/50MIN Diagnoses ESRD (end stage renal disease) on dialysis N18.6; Z99.2 Dialysis AV fistula malfunction T82.590A Insufficiency fracture of pelvis M84.454A
[2024-07-07 07:34] LABS: Hematocrit (blood only) 28.8 % (42.0-52.0); Hemoglobin 9.6 g/dl (14.0-18.0)
[2024-07-07 08:13] LABS: BUN Creatinine Ratio 13.6 (10-20); Calcium 7.7 mg/dl (8.6-10.3); Creatinine Clr Calc Pharmacy 7.8 ml/min; Potassium 4.8 mmol/L (3.5-5.1)
--- NOTE | 2024-07-07 12:44 | Hospitalist Progress Note ---
Date of Service July 07, 2024 Assessment & Plan (1) Closed pelvic fracture: Plan: S/p mechanical fall at home, Uses walker or wheelchair - denies syncope - CT scan revealed right superior and right inferior pubic rami fracture. Also has an acetabular fracture of the right hip, status post remote right total hip arthroplasty. 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 for assessment of need for Vit D replacement strategies - Orthopedic consultation appreciated; Nonoperative treatment at this time with toe-touch weightbearing on the right - PT and OT recommending inpatient rehab - to go to [facility] 07/08 insufficiency fracture of pelvis (2) Dysphagia: Plan: Permissive aspiration patient underweight with history of difficulty maintaining weight and dysphagia - speech consulted - Video swallow 07/05 showed mild oral, severe dysphagia and silent aspiration of all consistencies administered - Extensively discussed with patient and family on 07/05 about the risks and benefits of permissive aspiration; Patient agreeable - easy to chew diet; no straws, mouth care ACHS, head of bed > 30 degrees when eating, eat slowly - speech spoke with patient's family 07/06 to answer all questions and provided education on management of permissive aspiration underweight with BMI 17 (3) Acute respiratory failure with hypoxia: Plan: Resolved history of COPD; on 2 L O2 as needed at home - CXR on admission showed cardiomegaly, mild pulmonary edema, and bilateral airspace opacities - Supplemental oxygen per nasal cannula to maintain saturation greater than 90% - Continue incentive spirometry and HD - was on 6 L O2 - now weaned to room air - speech consulted, see permissive aspiration workup - continue home inhalers Acute pulmonary edema (4) Elevated troponin: Plan: trended downward on admission; 54.3 -> 49.1 - No evidence of acute coronary syndrome, No chest pain - EKG on admission showed NSR, right bundle branch block - telemetry showing normal sinus rhythm throughout hospital stay, transfer off telemetry 07/07 (5) ESRD (end stage renal disease) on dialysis: Plan: Hemodialysis MWF - nephrology following - AV fistula not working well - PermCath with vascular 07/06 - hemoglobin mildly decreased after surgery, ABLA with component of chronic anemia - Continue with daily BMPs macrocytic anemia with macrocytosis on cbc - B12 elevated, folate within normal limits - likely of chronic disease/ due to hemodialysis or perhaps MDS - follow as outpt with PCP (6) Diabetes mellitus: Plan: - recent A1c 6.4% - ADA diet - Sliding scale coverage as needed; not on any diabetes medication at home (7) Constipation: Plan: patient with constipation due to hospital stay and opioids - Scheduled Colace and Miralax BID - glycerin suppository 07/05 provided relief Plan Chronic stable diagnoses: HTN - stable, continue home amlodipine HLD - continue home statin VTE ppx: SCDs Diet: easy to chew, dialysis diet Code status: DNR/DNI Dispo: Transfer off telemetry; [email or web address] Admission and Anticipated Discharge Date Admission Date: July 02, 2024 Supervising Physician Co-Signing Physician Notes Physician Weir Fisher Supervision note: I have not personally seen and examined the patient, but discussed and verified the kee points of the history and physical along with the plan with FATEMEH Vicente with the following exceptions and/or additions: None Subjective Patient seen at bedside with and doing well. No acute events overnight. Bleeding has stopped from his catheter site. He is planning for dialysis today. Tele: Sinus rhythm with occasional PVCs, HR 60s Review of Systems Review of Systems: see HPI Physical Exam Physical Exam: Gen: well developed and well nourished, normocephalic and atraumatic, in no acute distress. Non-toxic appearing. HEENT- EOMI, mucous membranes moist. Hearing grossly intact. Heart-normal S1 and S2. No murmurs, rubs or gallops. Lungs-clear bilaterally, no respiratory distress, no accessory muscle use. Abdomen-normal bowel sounds and soft. No ascites noted. Non-tender. Extremities- no clubbing, cyanosis, or edema. Diffuse ecchymosis. Psychiatric-normal affect. Results & Data Results & Data Vital Signs (Past 12 Hours) Vital Signs Temp Pulse Resp BP Pulse Ox O2 Del Method O2 Flow Rate 07/07/24 10:46 64 19 153/48 H 97 Nasal Cannula 07/07/24 08:00 Nasal Cannula 2 07/07/24 07:38 36.4 C L 68 19 143/52 H 94 Nasal Cannula 4 07/07/24 07:06 77 18 94 Nasal Cannula 4 07/07/24 02:41 36.5 C 73 20 135/62 94 Nasal Cannula Laboratory Results reviewed H&H and BMP PG Care Time/CCT Total # of Minutes Spent Total Time Spent with Patient: Total time spent is greater than 50% in coordination of care (as documented) at patient's floor/unit and/or counseling patient: Coding [place] [address] SUB INP/OBS CARE 10/09MIN Patient Type Established Medical Decision Making Low Complexity Diagnoses Closed pelvic fracture S32.9XXA Encounter type: initial encounter Fracture alignment: displaced Pelvic bone location: unspecified part of pelvis Dysphagia R13.10 Acute respiratory failure with hypoxia J96.01 Elevated troponin R79.89 ESRD (end stage renal disease) on dialysis N18.6; Z99.2 Diabetes mellitus E11.9 Constipation K59.00 (1) Closed pelvic fracture Encounter type: initial encounter Fracture alignment: displaced Pelvic bone location: unspecified part of pelvis Qualified Code(s): S32.9XXA - Fracture of unspecified parts of lumbosacral spine and pelvis, initial encounter for closed fracture
--- NOTE | 2024-07-07 17:47 | Nephrology Progress Note ---
Date of Service July 07, 2024 Assessment & Plan (1) ESRD (end stage renal disease) on dialysis: Plan: Orders for HD today were entered into the EHR and reviewed with the shingle packer. Macho tolerated HD well. No complications with treatment. TDC used for toi tment, connected V:A/A:V due to high arterial pressures. Qb appropriate. Outpatient Rx 2.75 hours Q MWF at [facility] via AVG: Qb 450, Qd 800, 2K, 138Na, 32HCO3. LIJ TDC was placed by Dr. Bo 07/06 due to difficulty accessing the AVG. Medications are appropriate for IHD. (2) Dialysis AV fistula malfunction: Plan: s/p permcath placed by Dr. Bo 07/06. We will attempt to use AVG and when reliably able to use the permcath can be removed. (3) Insufficiency fracture of pelvis: Plan: Non-surgical. Pain controlled. PT/OT. Anticipated Rehab placement pending. Admission and Anticipated Discharge Date Admission Date: July 02, 2024 Subjective No acute events overnight. No complaints this AM. Macho was seen and evaluated during hemodialysis. He tolerated treatment well. TDC functioning well. Bleeding from exit site stopped. Review of Systems Review of Systems: All systems reviewed & are unremarkable except as noted in HPI & below Physical Exam Constitutional: + frail appearing; no acute distress Eyes: + anicteric sclerae ENMT: Mouth: oral mucous membranes not dry Neck: normal visual inspection and trachea midline LIJ TDC Respiratory: normal respiratory effort Auscultation: lungs clear to auscultation bilaterally Cardiovascular: Rate/Rhythm: regular rate and regular rhythm Heart Sounds: normal S1, normal S2 and + murmur Extremities: + edema and + AV fistula (L BC AVG with thrill and bruit) Musculoskeletal: Extremities: no cyanosis and no clubbing Skin: + ecchymosis; no jaundice Neurologic: Motor/Sensory: no tremor and no asterixis Psychiatric: Orientation: alert and oriented x 3 Results & Data Vital Signs (Past 12 Hours) Vital Signs Temp Pulse Pulse Pulse Resp BP BP 07/07/24 16:48 36.4 C L 63 126/49 L 07/07/24 16:30 65 113/51 L 07/07/24 16:00 63 114/46 L 07/07/24 15:30 67 116/49 L 07/07/24 15:00 75 106/52 L 07/07/24 14:30 66 107/45 L 07/07/24 14:00 50 L 125/54 L 07/07/24 13:36 69 131/53 L 07/07/24 13:28 36.4 C L 69 07/07/24 10:46 64 19 153/48 H 07/07/24 08:00 07/07/24 07:38 36.4 C L 68 19 143/52 H 07/07/24 07:06 77 18 Pulse Ox O2 Del Method O2 Flow Rate 07/07/24 16:48 07/07/24 16:30 07/07/24 16:00 07/07/24 15:30 07/07/24 15:00 07/07/24 14:30 07/07/24 14:00 07/07/24 13:36 07/07/24 13:28 07/07/24 10:46 97 Nasal Cannula 07/07/24 08:00 Nasal Cannula 2 07/07/24 07:38 94 Nasal Cannula 4 07/07/24 07:06 94 Nasal Cannula 4 Laboratory Results Laboratory Results - last 24 hr 07/07/24 07:16 Hgb 9.6 L Hct 28.8 L Sodium 136 Potassium 4.8 Chloride 100 Carbon Dioxide 24 Anion Gap 12 H BUN 75 H D Creatinine 5.50 H* D Est Cr Clr Drug Dosing 7.8 eGFR 9.59 BUN/Creatinine Ratio 13.6 Glucose 150 H Calcium 7.7 L PG Care Time/CCT Total # of Minutes Spent Total Time Spent with Patient: Total time spent is greater than 50% in coordination of care (as documented) at patient's floor/unit and/or counseling patient: Coding Level of Care Code 84387 SUB INP/OBS CARE 3/50MIN Diagnoses ESRD (end stage renal disease) on dialysis N18.6; Z99.2 Dialysis AV fistula malfunction T82.590A Insufficiency fracture of pelvis M84.454A
[2024-07-08 07:15] VITALS: BP 118/52; RESP 16; TEMP 97.3
[2024-07-08 07:29] VITALS: O2SAT 96
--- NOTE | 2024-07-08 10:02 | Nephrology Progress Note ---
Date of Service July 08, 2024 Assessment & Plan (1) ESRD (end stage renal disease) on dialysis: Plan: Completed HD yesterday with adequate UF and clearance. No complications with treatment. TDC used, connected V:A/A:V due to high arterial pressures. Qb approp riate. Outpatient Rx 2.75 hours Q MWF at [facility] via AVG: Qb 450, Qd 800, 2K, 138Na, 32HCO3. LIJ TDC was placed by Dr. Bo 07/06 due to difficulty accessing the AVG. Medications are appropriate for IHD. (2) Dialysis AV fistula malfunction: Plan: s/p permcath placed by Dr. Bo 07/06. We will attempt to use AVG and when reliably able to use the permcath can be removed. (3) Insufficiency fracture of pelvis: Plan: Non-surgical. Pain controlled. PT/OT. Anticipated Rehab placement pending. If discharged to [facility] - should resume outpatient HD at [facility] under prior outpatient Rx. Admission and Anticipated Discharge Date Admission Date: July 02, 2024 Subjective No acute events overnight. Tolerated HD well yesterday. No complaints this AM. Review of Systems Review of Systems: All systems reviewed & are unremarkable except as noted in HPI & below Physical Exam Constitutional: + thin and + frail appearing; no acute d istress Eyes: + anicteric sclerae; no scleral abnormal ity and no corneal abnormality ENMT: Mouth: oral mucous membranes not dry Neck: normal visual inspection and trachea midline LIJ TDC Respiratory: normal respiratory effort Auscultation: lungs clear to auscultation bilaterally Cardiovascular: Rate/Rhythm: regular rhythm and + bradycardic Heart Sounds: normal S1, normal S2 and + murmur Extremities: + AV fistula (L BC AVG with thrill and bruit) Musculoskeletal: Extremities: no cyanosis and no clubbing Skin: + ecchymosis; no jaundice Neurologic: Motor/Sensory: no tremor and no asterixis Psychiatric: Orientation: alert and oriented x 3 Results & Data Vital Signs (Past 12 Hours) Vital Signs Temp Pulse Resp BP Pulse Ox O2 Del Method O2 Flow Rate 07/08/24 08:00 Room Air 07/08/24 07:28 62 16 96 Nasal Cannula 2 07/08/24 07:14 36.3 C L 60 16 118/52 L 97 Nasal Cannula 2.0 PG Care Time/CCT Total # of Minutes Spent Total Time Spent with Patient: Total time spent is greater than 50% in coordination of care (as documented) at patient's floor/unit and/or counseling patient: Coding Level of Care Code 89473 SUB INP/OBS CARE 2/35MIN Diagnoses ESRD (end stage renal disease) on dialysis N18.6; Z99.2 Dialysis AV fistula malfunction T82.590A Insufficiency fracture of pelvis M84.454A
--- NOTE | 2024-07-08 11:06 | Discharge Summary ---
Discharge Summary Date of Service July 08, 2024 Principal Dx & Hospital Course #1 = Principal Diagnosis (1) Closed pelvic fracture: S/p mechanical fall at home, Uses walker or wheelchair - denies syncope - CT scan revealed right superior and right inferior pubic rami fracture. Also has an acetabular fracture of the right hip, status post remote right total hip arthroplasty. - Pain well-controlled with IV Dilaudid; transition to p.o. 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 Blackwell in 6 weeks insufficiency fracture of pelvis (2) Dysphagia: Permissive aspiration patient underweight with history of difficulty maintaining weight and dysphagia - speech consulted - Video swallow 07/05 showed mild oral, severe dysphagia and silent aspiration of all consistencies administered - Extensively discussed with patient and family on 07/05 about the risks and benefits of permissive aspiration; Patient agreeable - easy to chew diet; no straws, mouth care ACHS, head of bed > 30 degrees when eating, eat slowly - speech spoke with patient's family 07/06 to answer all questions and provided education on management of permissive aspiration underweight with BMI 17 (3) Acute respiratory failure with hypoxia: Resolved; secondary due to pulmonary edema and atelectasis history of COPD; on 2 L O2 at home - CXR on admission showed cardiomegaly, mild pulmonary edema, and bilateral airspace opacities - echo 05/2023 showed EF 55 to 60%, mild left ventricular hypertrophy, mild to moderate aortic regurg - Supplemental oxygen per nasal cannula to maintain saturation greater than 90% - Continue incentive spirometry and HD - was on 6 L O2 - now weaned to baseline 2L O2 - speech consulted, see permissive aspiration workup - continue home inhalers Acute pulmonary edema (4) Elevated troponin: trended downward on admission; 54.3 -> 49.1 - No evidence of acute coronary syndrome, No chest pain - EKG on admission showed NSR, right bundle branch block - telemetry showing normal sinus rhythm throughout hospital stay, transfer off telemetry 07/07 (5) ESRD (end stage renal disease) on dialysis: Hemodialysis MWF - nephrology consulted - AV fistula not working well - PermCath with vascular 07/06 - hemoglobin mildly decreased after surgery, A GRACE with component of chronic anemia macrocytic anemia with macrocytosis on cbc - B12 elevated, folate within normal limits - likely of chronic disease/ due to hemodialysis or perhaps MDS - follow as outpt with PCP (6) Diabetes mellitus: - recent A1c 6.4% - Sliding scale coverage as needed; not on any diabetes medication at home - continue with healthy diet upon discharge (7) Constipation: patient with constipation due to hospital stay and opioids - Scheduled Colace and Miralax; continue at rehab - glycerin suppository 07/05 provided relief - as per patient last bowel movement evening of 07/06 Plan Chronic stable diagnoses: HTN - stable, continue home amlodipine HLD - continue home statin VTE ppx: SCDs Diet: easy to chew, dialysis diet Code status: DNR/DNI Dispo: [facility] today for rehab, will have transport to dialysis MWF Completed patient education of current condition and management was provided. All questions that the patient asked were answered, and patient demonstrated complete understanding. Notes For Next Care Provider During patient's hospital stay was found that his CBC showed macrocytic anemia. B12 was elevated and his folate was within normal limits. We think this is likely due to anemia of chronic disease +/- MDS. I recommend that you continue to follow-up with this as an outpatient provider. Medication Changes From Visit Addition of Colace 100 mg twice daily and MiraLAX 17 GM twice daily for ongoing constipation Oxycodone 5 mg every 4 hours as needed p.o. Admission HPI Per Admitting Provider The patient is an 84-year-old male increasing frequency of falls at home, who walks with either a walker or a wheelchair. Toward his bathroom, and bumped into his and fell, developing right lower rib cage pain and right pelvic and hip pain. Medical history includes ESRD on HD, PMR, a reducible right inguinal hernia, weight loss, mediastinal mass, hypercholesterolemia, hemochromatosis, nonsustained V. tach, sinus bradycardia malignant melanoma, diabetes mellitus and hypertension. Workup in the emergency department included x-ray of pelvis which showed right superior and inferior pubic rami fractures. CT of pelvis confirmed those fractures, and also a nondisplaced acetabular fracture. Admission Exam Per Admitting Provider The patient is awake, alert and oriented 3, well developed and well nourished, normocephalic and atraumatic, lying in bed and in no acute distress. HEENT--PERRL, EOMI, mucous membranes and oropharynx normal Neck--supple. No JVD. No bruits. Thyroid normal, trachea midline, no adenopathy. Heart--normal S1 and S2. No murmurs, rubs or gallops. Lungs--clear bilaterally, no respiratory distress, no accessory muscle use. Abdomen--normal bowel sounds and soft. Nontender. Nondistended Extremities--no cyanosis or clubbing. No edema. Dermatologic--normal skin turgor, normal color, no abnormal lymph nodes, no rash. Neurologic--cranial nerves II through XII grossly intact. Rheumatologic--limited exam due to pain Psychiatric--normal affect. Discharge Exam well developed and well nourished, normocephalic and atraumatic, in no acute distress. Non-toxic appearing. HEENT- EOMI, mucous membranes moist. Hearing grossly intact. Heart-normal S1 and S2. No murmurs, rubs or gallops. Lungs-clear bilaterally, no respiratory distress, no accessory muscle use. Abdomen-normal bowel sounds and soft. No ascites noted. Non-tender. Extremities- no clubbing, cyanosis, or edema. Diffuse ecchymosis. Psychiatric-normal affect. Discharge Plan Discharge Items Patient Disposition: Transfer Long-Term Fac Reason For Visit: PELVIC FRACTURES Discharge Diagnosis: 1. Close pelvic fracture 2. Dysphagia Condition on Discharge: Fair Activity: As commented below Activity Comment: Increase as tolerated with inpatient rehab Weightbearing: Right toe touch Non-emergency contact: Primary Care Provider, Surgeon and Movie Stunt Performer Call non-emergency contact if: you have any medication questions, your symptoms worsen, your pain is not controlled, your temperature is above 101, your wound has increased redness and your wound has increased drainage Follow-up/Referrals: Tano Chester MD [Primary Care Provider] - ( Follow-up 1 to 2 weeks after discharge from rehab) Kalen Blackwell MD [Surgeon] - ( follow-up in 6 weeks) Diet: Dialysis Renal Diet Texture: Easy to Chew Addtl Attending Provider Instructions: You were hospitalized for a closed pelvic fracture. Orthopedics chose not to go with operative management at this time. You are to go to [facility] for inpatient rehab. I am sending a prescription of pain medication known as oxycodone for you to take there as needed. I also recommend that you take Tylenol as needed as well. This would only be a 3-day supply as the providers there will continue pain management after that. You are currently in the status of toe-touch weightbearing to the right side. As discussed these pain medications can cause constipation, you can continue to take Colace and MiraLAX as needed. You are to follow-up with Dr. Blackwell in 6 weeks for your hip fracture. You are also assessed for dysphagia/aspiration on this admission due to hypoxia requiring 6 L of oxygen during the beginning of your hospital stay. Your hypoxia has since resolved and you are on the 2 L oxygen that you use at [facility]. It was found during the video swallow that you aspirate when swallowing all textures. It was discussed with speech and the hospital medicine staff that you are to allow silent aspiration. The risks and benefits of this were discussed with you and your family. You are to have an easy to chew diet, use no straws, and perform mouth care prior to meals and before bed to reduce amount of for bacteria. It was also seen on your blood work that you have macrocytic anemia. This is sometimes caused by low B12 or folate which both of your levels were normal. It is possible that this is due to anemia of chronic disease with your kidney disease or myelodysplastic syndrome. You are to follow-up with this outpatient with you PCP. It is recommended that you follow up with your PCP in 1-2 weeks after being discharged from rehab. Pending Studies at Discharge: No Stand-Alone Forms: My [facility] Skilled Items Patient informed of condition?: Yes DNR: Yes Discharge Level of Care: Skilled Communicable Disease: No Discharge Prognosis: Stable Lines: [place] Urinary Catheter: No Medications and DC Order Prescriptions: New acetaminophen 325 mg Tablet 650 mg PO Q4H PRN (Reason: pain) 3 Days Qty: 12 0RF polyethylene glycol 3350 [Miralax] 17 gram Powder In Packet 17 g PO BID Qty: 6 0RF docusate sodium 100 mg Capsule 100 mg PO BID Qty: 6 0RF oxycodone 5 mg tablet 5 mg PO Q4H PRN (Reason: pain (scale score 6-10)) Qty: 18 0RF Continued amlodipine [Norvasc] 10 mg tablet 10 mg PO QAM Qty: 90 3RF coenzyme Q10 200 mg tablet 200 mg PO QAM dorzolamide 2 % drops 1 drp OPB HS Patient Comments: takes hs Ca-D3-mag [id number]-[id number]-bor [Calcium 600-D3 Plus (mag-zinc)] 600 mg calcium- 20 mcg-50 mg tablet 1 tab PO DAILY fluticasone propion-salmeterol [Wixela Inhub] 250-50 mcg/dose blister with device 1 inh inhalation BID Qty: 60 5RF levalbuterol tartrate 45 mcg/actuation HFA aerosol inhaler 2 inh inhalation Q6H Qty: 15 5RF simvastatin 20 mg tablet 20 mg PO QAM Qty: 90 1RF multivitamin tablet 1 tab PO QAM [facility] 40-10-5-3.3 mg tablet 1 tab PO QAM calcium acetate(phosphat bind) 667 mg capsule 1,334 mg PO TIDM Lilo-Luis 0.8 mg tablet 1 tab PO QPM Discharge Orders: Discharge Order (Routine); Ordered 07/08/24 Ordered By: Arlei Tejeda/Other Patient Handouts: Dysphagia Aspiration, Dysphagia Diet- Managing Drinks, Dysphagia Diet- Managing Foods Admission Data Admit Date/Time: 07/02/24 07:21 Attending Provider: Gela Dutta Admit Provider: Oziel Alexandra Primary Care Provider: Tano Chester. Other Providers: Oziel Alexandra; Jennifer Tavarez Edwin J; Rell Montana; Macho Bo Other Interventions: Discharge Summary Assessment (RN) Last Done: 07/08/24 12:43 Hospital Stay Data Consultations 07/01/24 19:23 ED Decision to Admit Stat 07/01/24 23:18 Consult Nephrology Routine 07/02/24 02:26 Consult Orthopedic Surgery Routine 07/03/24 10:18 Consult Zipper Sewing Machine Operator Routine 07/05/24 14:31 Consult Vascular Surgery Routine Procedures Performed Operation Date: 07/06/24 09:30 Actual Procedures p Perm Catheter Insertion,Left Internal Jugular Approach,Ultrasound Localization of Left Internal Jugular Vein, Fluoroscopy for Positioning,Moderate Sedation [id number](Left) - Macho Bo MD Diagnostic Imagining Performed Hip/pelvis x-ray ribs with chest x-ray Pelvis CT chest x-ray KUB x-ray 07/05/24 13:00 FL video swallow Routine 07/06/24 09:25 EV cvc insrt tunnel wo prt/travel specialist Routine US EV guide vascular access Routine Discharge Instructions Given to Patient (Per Discharging Provider) You were hospitalized for a closed pelvic fracture. Orthopedics chose not to go with operative management at this time. You are to go to [facility] for inpatient rehab. I am sending a prescription of pain medication known as oxycodone for you to take there as needed. I also recommend that you take Tylenol as needed as well. This would only be a 3-day supply as the providers there will continue pain management after that. You are currently in the status of toe-touch weightbearing to the right side. As discussed these pain medications can cause constipation, you can continue to take Colace and MiraLAX as needed. You are to follow-up with Dr. Blackwell in 6 weeks for your hip fracture. You are also assessed for dysphagia/aspiration on this admission due to hypoxia requiring 6 L of oxygen during the beginning of your hospital stay. Your hypoxia has since resolved and you are on the 2 L oxygen that you use at baseline. It was found during the video swallow that you aspirate when swallowing all textures. It was discussed with speech and the hospital medicine staff that you are to allow silent aspiration. The risks and benefits of this were discussed with you and your family. You are to have an easy to chew diet, use no straws, and perform mouth care prior to meals and before bed to reduce amount of for bacteria. It was also seen on your blood work that you have macrocytic anemia. This is sometimes caused by low B12 or folate which both of your levels were normal. It is possible that this is due to anemia of chronic disease with your kidney disease or myelodysplastic syndrome. You are to follow-up with this outpatient with you PCP. It is recommended that you follow up with your PCP in 1-2 weeks after being discharged from rehab. Supervising Physician Co-Signing Physician Notes FATEMEH Supervision Note: I personally saw and examined the patient. I verified all kee points and agree with FATEMEH Vicente with the following exceptions and/or additions: S-Pt having pain in pelvis and hip with standing, is worried he will make the fracture worse if he gets up and walks around. Reassured him this would not be the case and encouraged rehab O- Vitals reviewed Gen: [AAOx3, NAD] HEENT: [anicteric sclerae, EOMI] CV: [RRR no mgr nl S1S2,left anterior chest wall with TDC in place, some ecchymosis surrounding, no bleeding] Pulm: [CTAB no wcr] CBC, BMP reviewed A/P-84 yo male here with fall and pelvic fractures, ESRD on HD. Stable for discharge with pain meds to rehab, continue usual HD schedule. May be able to removed TDC if AVG able to be accessed at HD-defer to Nephrology Total Time Total Time Spent Total Time Spent (In Minutes): 35 mins Total Time Includes: Examination of the Patient, Discharge Planning, Medication Reconciliation and Communication With Other Providers [place] [id number] INP/OBS DISCH >30 MIN Patient Type Established Medical Decision Making Moderate Complexity Diagnoses Closed pelvic fracture S32.9XXA Encounter type: initial encounter Fracture alignment: displaced Pelvic bone location: unspecified part of pelvis Dysphagia R13.10 Acute respiratory failure with hypoxia J96.01 Elevated troponin R79.89 ESRD (end stage renal disease) on dialysis N18.6; Z99.2 Diabetes mellitus E11.9 Constipation K59.00
[2024-07-08] MEDS: oxyCODONE/ACETAMINOPHEN 5mg/325mg TAB PO PRN (11:11)
[2024-07-08 13:41] VITALS: PULSE 58
== END 2024-07-08 15:00 | DRG 542 ==
LOC: ED 14:18 → 4W 14:18 → SUATTDRO 20:55 → 4W 22:41 → SUATTDRO 07-02 07:21 → 3N 07-07 21:08